=== PATIENT | male | born 1965 | race Caucasian/White ===

== ENCOUNTER 2021-04-07 12:16 | Outpatient (CLI) | payer OTHER ==
[~2021-04-07] VITALS: Ht 182.9 cm; Wt 137.3 kg
[~2021-04-07 12:16] MED LIST: ACYC1TAB PO; ALLO100T PO; ASPI81CH33 PO; AUGM875T28 PO; BUSP10TA PO; FENO200C PO; FLUC150T PO; FLUO20CA22 PO; GLYB5TAB6 PO; LEVO500T3 PO; LISI20TA33 PO; LOVA20TA2 PO; ONDA8TAB10 PO; PROC10TA4 PO; STEG15TA PO; VENC100T PO
[2021-04-07 12:45] VITALS: BP 120/70
[2021-04-07 12:50] VITALS: BP 120/70
[2021-04-07 13:06] VITALS: BP 142/75
[2021-04-07 14:00] VITALS: BP 143/69
[2021-04-07 14:30] VITALS: BP 131/63
== END 2021-04-07 14:45 | disposition home or self-care (01) ==
LOC: M INFU 12:16
PROVIDERS: ATTEND Specialist
DX: D61.818 Other pancytopenia (principal); Z88.8 Allergy status to other drugs, medicaments and biological substances
CPT/HCPCS: 36415; 36430; 80053; 85025; 85049; 85055; 86900; 86901; P9034

== ENCOUNTER 2021-05-03 16:12 | Outpatient (CLI) | payer OTHER ==
[~2021-05-03] VITALS: Ht 182.9 cm; Wt 127.1 kg
[2021-05-03] VITALS (11 sets, daily range): BP systolic 123–146; BP diastolic 68–84
[2021-05-03] MEDS ORDERED: GLUCAGON INJ 1MG VIAL SC PRN (17:30)
[2021-05-03] MEDS ORDERED: GLUCOSE 4GM CHEW TABLET PO PRN (17:30)
[2021-05-03] MEDS: HumaLOG INSULIN (NovoLOG) PER UNIT SC SCH ×2 (17:30→21:00)
[2021-05-03] MEDS ORDERED: DEXTROSE 50% 50 ML SYRINGE IV PRN (17:30)
[2021-05-03] MEDS ORDERED: VORI200T PO (17:59)
[2021-05-03] MEDS ORDERED: BUSP-29 PO (17:59)
[2021-05-03] MEDS ORDERED: ACYC1TAB PO (17:59)
[2021-05-03] MEDS ORDERED: ALLO300T2 PO (17:59)
[2021-05-03] MEDS ORDERED: LISI20TA33 PO (17:59)
[2021-05-03] MEDS ORDERED: VENC100T PO (17:59)
[2021-05-03] MEDS ORDERED: FLUO40CA PO (17:59)
[2021-05-03] MEDS ORDERED: HOME MED LIST COMPLETE! XX SCH (18:00)
[2021-05-03] MEDS ORDERED: ACETAMINOPHEN TAB 650MG DOSE (2X325MG) PO PRN (18:10)
[2021-05-03] MEDS ORDERED: ACETAMINOPHEN 325 MG TAB PO ONE (19:15)
[2021-05-03] MEDS ORDERED: diphenhydrAMINE 25MG CAP PO ONE (21:00)
[2021-05-03] MEDS ORDERED: diphenhydrAMINE 50MG/ML VIAL (J1200) IV ONE (23:45)
[2021-05-03] MEDS ORDERED: ACETAMINOPHEN TAB 650MG DOSE (2X325MG) PO ONE (23:45)
[2021-05-04] VITALS (17 sets, daily range): BP systolic 100–140; BP diastolic 47–78
[2021-05-04] MEDS ORDERED: IBUPROFEN 800 MG TAB PO ONE (01:10)
--- NOTE | 2021-05-04 01:23 | IPNPDOC ---
Text Note Date of Service The patient was seen on 05/04/21. NOTE Seen status post 2 units PRBC with reported rigors and fever. Tylenol and Benadryl IV ordered Patient blood glucose 76. He is seen after drinking 2 orange juices. Temp 102.1 F, BP 131/75 on initial notification to 109/75 during exam, respiratory rate 20. Pt does have body habitus and sounds diminished, but nonlabored and denies shortness of breath. No wheezing appreciated. He is mildly tachycardic heart rate 102, regular rhythm Pt denies itching, johansen, sinus congestion, sore throat, productive cough, sob, palpitations, chest pain, n/v/d, abdominal pain, weakness, sensory changes or syncope. He endorses feeling "hot". He does report that earlier he did have some similar shaking when his blood sugar was 63 and describes that he typically runs 120s for his blood sugar. Patient does endorse that 3 weeks ago he did have pneumonia and was in the hospital. Presently patient reports "I feel fine now just warm" Plan for continued monitoring; vital sign recheck for consideration of IV fluids if blood pressure trending down. Transfusion reaction lab work/work-up per policy. Likely febrile nonhemolytic transfusion reaction given patient presentation at time of exam. Will symptom manage. Update: Given pt with fever, recent pna opted for CXR considering differential in immunocompromised pt. Impression + PNA, minimal right middle infiltrate. CXR possible residual from recent pna; do not have CXR to compare. Pt denies any aspiration episodes. He is toleraitng RA, no sob/ cough. Opted for levaquin PO. AM labs including procalc to be drawn. BC sent. Consider de-escalation or escalation accordingly. VS,Fishbone, I+O VS, Fishbone, I+O Vital Signs Date Time Temp Pulse Resp B/P (MAP) Pulse Ox O2 Delivery O2 Flow Rate FiO2 05/03/21 22:00 100.9 101 20 125/70 (88) 97 Room Air I&O- Last 24 Hours up to 6 AM 05/04/21 06:00 Intake Total 420 ml Output Total 870 ml Balance -450 ml MUMTAZ VÁSQUEZ NP May 04, 2021 01:23
--- NOTE | 2021-05-04 03:33 | REPVR ---
PROCEDURE INFORMATION: Exam: XR Chest Exam date and time: 05/04/2021 1:32 AM Age: 55 years old Clinical indication: Fever; Additional info: Fever, recent pna, poss transfusion reaction TECHNIQUE: Imaging protocol: XR of the chest. Views: 1 view. COMPARISON: No relevant prior studies available. FINDINGS: Lungs: Minimal infiltrate in the left mid lung. The right lung is clear. Pleural spaces: Unremarkable. No pleural effusion. No pneumothorax. Heart/Mediastinum: Unremarkable. No cardiomegaly. Bones/joints: Unremarkable. IMPRESSION: Minimal infiltrate in the left mid lung consistent with pneumonia. Electronically signed by: Kevin Waldron On 05/04/2021 03:32:57 AM
[2021-05-04] MEDS: LevoFLOXacin 750 MG TABLET PO SCH (06:10)
[2021-05-04] MEDS: HumaLOG INSULIN (NovoLOG) PER UNIT SC SCH ×4 (08:19→20:37)
[2021-05-04] MEDS: LACTOBACILLUS ACIDOPHILUS CAP (BACID) PO SCH (08:19)
[2021-05-04 08:47] LABS: LYMPH # 0.2 10^3/uL (1.5-5.0); MEAN CORPUSCULAR HEMOGLOBIN 29.8 pg (27.0-33.0); MEAN CORPUSCULAR HGB CONC 34.8 g/dl (32.0-36.5); MEAN CORPUSCULAR VOLUME 85.8 fl (80.0-96.0); MONO # 0.2 10^3/uL (0.0-0.8); RED BLOOD COUNT 2.18 10^6/uL (4.30-6.10)
[2021-05-04 08:53] LABS: HEMATOCRIT 18.7 % (42.0-52.0); HEMOGLOBIN 6.5 g/dl (13.5-17.5); PLATELET COUNT, AUTOMATED 6 10^3/uL (150-450); WHITE BLOOD COUNT 0.4 10^3/uL (4.0-10.0)
[2021-05-04] MEDS: VORICONAZOLE 200MG TABLET (VFEND) PO SCH ×2 (09:00→20:46)
[2021-05-04] MEDS: ACYCLOVIR 200 MG CAPSULE PO SCH ×2 (09:00→20:46)
[2021-05-04 09:17] LABS: ALBUMIN 2.5 GM/DL (3.2-5.2); ALT/SGPT 20 U/L (12-78); BILIRUBIN,TOTAL 0.8 MG/DL (0.2-1.0); BLOOD UREA NITROGEN 19 MG/DL (7-18); CALCIUM LEVEL 8.1 MG/DL (8.5-10.1); CARBON DIOXIDE LEVEL 22 MEQ/L (21-32); CHLORIDE LEVEL 108 MEQ/L (98-107); CREATININE FOR GFR 0.76 MG/DL (0.70-1.30); GLOMERULAR FILTRATION RATE > 60.0 (>56); GLUCOSE, FASTING 189 MG/DL (70-100); POTASSIUM SERUM 3.9 MEQ/L (3.5-5.1); SODIUM LEVEL 139 MEQ/L (136-145); TOTAL PROTEIN 5.8 GM/DL (6.4-8.2)
[2021-05-04] MEDS ORDERED: ACETAMINOPHEN TAB 650MG DOSE (2X325MG) PO ONE (13:00)
[2021-05-04] MEDS ORDERED: diphenhydrAMINE 25MG CAP PO ONE (13:00)
[2021-05-04] MEDS: FLUoxetine 20 MG CAP PO SCH (13:49)
[2021-05-04] MEDS: busPIRone 10 MG TAB PO SCH ×2 (13:49→20:46)
[2021-05-04] MEDS: allopurinoL 300 MG TAB PO SCH (13:49)
--- NOTE | 2021-05-04 13:55 | CR.PDOC ---
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 In the meantime, he was admitted by heme/onc for outpatient blood products transfusion but had a fever during transfusion and has persistent anemia and thrombocytopenia that require more transfusions thus the involvement of general internal medicine for medical co-management. Of note, he also has a history of morbid obesity, NIDDM, hypertension and depression. On presentation he felt tired and fatigued but otherwise had not other glen complaints on review of systems. His WBC was 0.3, Hgb 5.3 and platelets were 2. He was transfused 2u of blood during which he had a fever, and reports that he usually gets Tylenol and Benadryl pre-transfusions. Given the occurrence of the fever, internal medicine was called overnight by nursing and ordered BCx that are negative to date and did a chest xray that showed a minimal right middle lobe infiltrate while a UA was bland. He was empirically started on levaquin. Given that he remains inpatient, I am also now restarting his acyclovir, vori and allopurinol. After a discussion with Dr. Nelson, she recommends resuming his venotoclax. Allergies metformin (Verified Allergy, Intermediate, diarrhea, 07/21/20) Home Medications: see below Past Medical History Morbid obesity Chronic kidney disease Depression NIDDM Essential hypertension Hyperlipidemia Sleep apnea syndrome Past Surgical History: Right rotator cuff surgery Bone marrow biopsies Family History: Patient has 1 brother and 2 sisters. Brother has DJD Mother of lung cancer at the age of 69 Father of stroke at the age of 70. Social History: Patient is a resident of [place]. 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 Drinks occasionally. REVIEW OF SYSTEMS: 10 point ROS was negative, except as noted in the HPI PHYSICAL EXAMINATION: VITAL SIGNS: Please see below. GENERAL APPEARANCE: Obese, NAD, AOx3 HEENT: NCAT, EOMI, MMM RESPIRATORY: RRRn, no noted crackles, wheezing or rhonchi. 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 CAP: fever (though i/s/o transfusion), right middle lobe infiltrate, elevated procal -Levofloxacin, day 1 Chemo induced panycytopenia: -will give 2u pRBCs and 2 pools of irradiated platelets today. -goal Hgb >7, platelets >10 -per Dr. Davidson to continue venotoclax -neutropenic precautions AML: -Follows with Dr. Cox at [place] and Dr. Lu here. Plan is for 28d course of venetoclax w/ plan for bone marrow biopsy on May 17 -Q3D CBCs once outpatient for repletion PRN transfusions. While inpatient will have daily CBC -continue home allopurinol, vori, acyclovir -Heme/onc onboard DM: -hold oral antihyperglycemic -SSI ACHS -FSBG ACHS -hypoglycemia protocol Hypertension: -continue home meds Depression: -continue home meds DVT ppx: TEDs and SCDs Vital Signs/I&O Vital Signs Date Time Temp Pulse Resp B/P (MAP) Pulse Ox O2 Delivery O2 Flow Rate FiO2 05/04/21 11:50 100.2 05/04/21 06:30 99 16 116/59 (78) 100 Room Air I&O- Last 24 Hours up to 6 AM 05/04/21 06:00 Intake Total 1280 ml Output Total 1550 ml Balance -270 ml Laboratory Data Labs 24H Laboratory Tests 2 05/03/21 17:45: Bedside Glucose (Misc Panel) 63L 05/03/21 20:39: Bedside Glucose (Misc Panel) 129H 05/03/21 23:48: Bedside Glucose (Misc Panel) 76 05/04/21 02:06: Urine Color YELLOW, Urine Appearance CLEAR, Urine pH 6.0, Urine Specific Wells 1.003, Urine Protein NEGATIVE, Urine Glucose (UA) 3+H, Urine Ketones NEGATIVE, Urine Blood NEGATIVE, Urine Nitrite NEGATIVE, Urine Bilirubin NEGATIVE, Urine Urobilinogen 0.2, Urine Leukocyte Esterase NEGATIVE, Urine WBC (Auto) 0, Urine RBC (Auto) 1, Urine Hyaline Casts (Auto) 0, Urine Bacteria (Auto) NEGATIVE, Urine Squamous Epithelial Cells 0, Urine Sperm (Auto) 05/04/21 02:53: Bedside Glucose (Misc Panel) 123H 05/04/21 07:32: Bedside Glucose (Misc Panel) 157H 05/04/21 08:21: Immature Granulocyte % (Auto) 0.0, Neutrophils (%) (Auto) 5.0L, Lymphocytes (%) (Auto) 45.0H, Monocytes (%) (Auto) 50.0H, Eosinophils (%) (Auto) 0.0, Basophils (%) (Auto) 0.0, Neutrophils # (Auto) 0.0L, Lymphocytes # (Auto) 0.2L, Monocytes # (Auto) 0.2, Eosinophils # (Auto) 0.0, Basophils # (Auto) 0.0, Nucleated Red Blood Cells % (auto) 0.0, Anion Gap 9, Glomerular Filtration Rate > 60.0, Lactic Acid Level 2.0, Calcium Level 8.1L, Magnesium Level 2.0, Total Bilirubin 0.8, Aspartate Amino Transf (AST/SGOT) 15, Alanine Aminotransferase (ALT/SGPT) 20, Alkaline Phosphatase 122H, Total Protein 5.8L, Albumin 2.5L, Albumin/Globulin Ratio 0.8, Procalcitonin 0.71 05/04/21 12:16: Bedside Glucose (Misc Panel) 139H CBC/BMP Laboratory Tests 05/04/21 08:21 Microbiology Microbiology 05/04/21 Blood Culture, Received Pending Allergies Coded Allergies: metformin (Verified Allergy, Intermediate, diarrhea, 07/21/20) Home Medications Scheduled Acyclovir (Acyclovir) 400 Mg Tablet, 400 MG PO BID, (Reported) Buspirone HCl (Buspirone HCl) 10 Mg Tablet, 10 MG PO BID, (Reported) Ertugliflozin Pidolate (Steglatro) 15 Mg Tablet, 15 MG PO DAILY, (Reported) Fluoxetine Hcl (Fluoxetine HCl) 40 Mg Capsule, 40 MG PO DAILY, (Reported) Lisinopril (Lisinopril) 20 Mg Tablet, 20 MG PO DAILY, (Reported) Venetoclax (Venclexta) 100 Mg Tablet, 100 MG PO DAILY, (Reported) Voriconazole (Voriconazole) 200 Mg Tablet, 200 MG PO BID, (Reported) allopurinoL (allopurinoL) 300 Mg Tablet, 300 MG PO DAILY, (Reported) KENDAL MENESES MD May 04, 2021 13:55
[2021-05-04] MEDS: LOPERAMIDE 2 MG CAPLET PO PRN (17:14)
[2021-05-04 20:09] LABS: HEMOGLOBIN 5.2 g/dl (13.5-17.5)
[2021-05-04 20:10] LABS: PLATELET COUNT, AUTOMATED 18 10^3/uL (150-450)
[2021-05-04] MEDS: ACETAMINOPHEN TAB 650MG DOSE (2X325MG) PO PRN (20:47)
[2021-05-04] MEDS: SIMETHICONE 80MG CHEW TAB PO PRN (20:50)
[2021-05-04] MEDS: IBUPROFEN 600MG TAB PO PRN (22:11)
[2021-05-05] VITALS (17 sets, daily range): BP systolic 102–133; BP diastolic 40–71
[2021-05-05] MEDS: IBUPROFEN 600MG TAB PO PRN ×2 (04:54→18:32)
[2021-05-05] MEDS: LevoFLOXacin 750 MG TABLET PO SCH (05:15)
[2021-05-05 06:59] LABS: LYMPH # 0.1 10^3/uL (1.5-5.0); LYMPH % 28.9 % (24.0-44.0); MEAN CORPUSCULAR HEMOGLOBIN 29.1 pg (27.0-33.0); MEAN CORPUSCULAR HGB CONC 34.1 g/dl (32.0-36.5); MEAN CORPUSCULAR VOLUME 85.4 fl (80.0-96.0); MONO # 0.3 10^3/uL (0.0-0.8); MONO % 57.8 % (2.0-8.0); NEUTROPHILS % 4.4 % (36.0-66.0); RED BLOOD COUNT 2.13 10^6/uL (4.30-6.10)
[2021-05-05 07:09] LABS: HEMATOCRIT 18.2 % (42.0-52.0)
[2021-05-05 07:10] LABS: HEMOGLOBIN 6.2 g/dl (13.5-17.5); PLATELET COUNT, AUTOMATED 13 10^3/uL (150-450); WHITE BLOOD COUNT 0.5 10^3/uL (4.0-10.0)
[2021-05-05 07:13] LABS: BLOOD UREA NITROGEN 19 MG/DL (7-18); CALCIUM LEVEL 7.8 MG/DL (8.5-10.1); CARBON DIOXIDE LEVEL 26 MEQ/L (21-32); CHLORIDE LEVEL 108 MEQ/L (98-107); CREATININE FOR GFR 0.68 MG/DL (0.70-1.30); GLOMERULAR FILTRATION RATE > 60.0 (>56); GLUCOSE, FASTING 156 MG/DL (70-100); POTASSIUM SERUM 3.5 MEQ/L (3.5-5.1); SODIUM LEVEL 138 MEQ/L (136-145)
[2021-05-05] MEDS: HumaLOG INSULIN (NovoLOG) PER UNIT SC SCH ×4 (08:48→21:00)
[2021-05-05] MEDS: LOPERAMIDE 2 MG CAPLET PO PRN (08:49)
[2021-05-05] MEDS: busPIRone 10 MG TAB PO SCH ×2 (08:49→21:00)
[2021-05-05] MEDS: allopurinoL 300 MG TAB PO SCH (08:49)
[2021-05-05] MEDS: VORICONAZOLE 200MG TABLET (VFEND) PO SCH ×2 (08:50→21:00)
[2021-05-05] MEDS: ACYCLOVIR 200 MG CAPSULE PO SCH ×2 (08:50→21:00)
[2021-05-05] MEDS: LACTOBACILLUS ACIDOPHILUS CAP (BACID) PO SCH (08:50)
[2021-05-05] MEDS: FLUoxetine 20 MG CAP PO SCH (08:50)
[2021-05-05] MEDS ORDERED: VENETOCLAX 100MG TABLET (PATIENT'S OWN MED) PO SCH (09:00)
[2021-05-05] MEDS ORDERED: LEVO750T13 PO (09:30)
[2021-05-05 10:19] LABS: HEMATOCRIT 17.9 % (42.0-52.0); HEMOGLOBIN 6.2 g/dl (13.5-17.5)
[2021-05-05] MEDS: VENETOCLAX 100MG TABLET (PATIENT'S OWN MED) PO SCH (10:34)
[2021-05-05] MEDS: ACETAMINOPHEN TAB 650MG DOSE (2X325MG) PO PRN ×2 (14:15→19:50)
[2021-05-05] MEDS: SIMETHICONE 80MG CHEW TAB PO PRN (17:21)
[2021-05-05 19:49] LABS: HEMATOCRIT 22.5 % (42.0-52.0); HEMOGLOBIN 7.9 g/dl (13.5-17.5)
--- NOTE | 2021-05-05 20:14 | IPNPDOC ---
Text Note Date of Service The patient was seen on 05/05/21. NOTE SUBJECTIVE: -No acute complaints, is having episodic fevers, unfortunately often coincide with transfusions OBJECTIVE: VITAL SIGNS: Please see below. GENERAL APPEARANCE: Obese, NAD, AOx3 HEENT: NCAT, EOMI, MMM RESPIRATORY: RRR, no noted crackles, wheezing or rhonchi. 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 CAP: fever (though i/s/o transfusion), right middle lobe infiltrate, elevated procal -Levofloxacin, day 2 -check MRSA PCR, strep and legionella antigens Chemo induced panycytopenia: -s/p 6u pRBCs and 2 pools of irradiated platelets. -goal Hgb >7, platelets >10 -per Dr. Davidson to continue venotoclax -neutropenic precautions AML: -Follows with Dr. Cox at [place] and Dr. Lu here. Plan is for 28d course of venetoclax w/ plan for bone marrow biopsy on May 17 -Q3D CBCs once outpatient for repletion PRN transfusions. While inpatient will have daily CBC -continue home allopurinol, vori, acyclovir -Heme/onc onboard DM: -hold oral antihyperglycemic -SSI ACHS -FSBG ACHS -hypoglycemia protocol Hypertension: -continue home meds Depression: -continue home meds DVT ppx: TEDs and SCDs Dispo: home tomorrow AM VS,Fishbone, I+O VS, Fishbone, I+O Laboratory Tests 05/05/21 06:33 05/05/21 09:52 05/05/21 19:28 Vital Signs Date Time Temp Pulse Resp B/P (MAP) Pulse Ox O2 Delivery O2 Flow Rate FiO2 05/05/21 19:30 102.6 113 20 133/69 97 Room Air I&O- Last 24 Hours up to 6 AM 05/05/21 06:00 Intake Total 4023 ml Output Total 1490 ml Balance 2533 ml KENDAL MENESES MD May 05, 2021 20:14
[2021-05-06] MEDS: LevoFLOXacin 750 MG TABLET PO SCH (05:06)
[2021-05-06] MEDS: LOPERAMIDE 2 MG CAPLET PO PRN (05:06)
[2021-05-06] MEDS: SIMETHICONE 80MG CHEW TAB PO PRN (05:06)
[2021-05-06] MEDS: IBUPROFEN 600MG TAB PO PRN (05:07)
[2021-05-06 06:00] VITALS: BP 124/69
[2021-05-06 06:42] LABS: HEMATOCRIT 21.1 % (42.0-52.0); HEMOGLOBIN 7.5 g/dl (13.5-17.5); LYMPH # 0.1 10^3/uL (1.5-5.0); LYMPH % 19.4 % (24.0-44.0); MEAN CORPUSCULAR HEMOGLOBIN 29.3 pg (27.0-33.0); MEAN CORPUSCULAR HGB CONC 35.5 g/dl (32.0-36.5); MEAN CORPUSCULAR VOLUME 82.4 fl (80.0-96.0); MONO # 0.3 10^3/uL (0.0-0.8); MONO % 53.2 % (2.0-8.0); NEUTROPHILS % 27.4 % (36.0-66.0); RED BLOOD COUNT 2.56 10^6/uL (4.30-6.10)
[2021-05-06 06:55] LABS: BLOOD UREA NITROGEN 15 MG/DL (7-18); CALCIUM LEVEL 7.8 MG/DL (8.5-10.1); CARBON DIOXIDE LEVEL 23 MEQ/L (21-32); CHLORIDE LEVEL 107 MEQ/L (98-107); CREATININE FOR GFR 0.62 MG/DL (0.70-1.30); GLOMERULAR FILTRATION RATE > 60.0 (>56); GLUCOSE, FASTING 170 MG/DL (70-100); NEUTROPHILS # 0.2 10^3/uL (1.5-8.5); PLATELET COUNT, AUTOMATED 8 10^3/uL (150-450); POTASSIUM SERUM 3.6 MEQ/L (3.5-5.1); SODIUM LEVEL 136 MEQ/L (136-145); WHITE BLOOD COUNT 0.6 10^3/uL (4.0-10.0)
[2021-05-06] MEDS: HumaLOG INSULIN (NovoLOG) PER UNIT SC SCH (08:17)
[2021-05-06] MEDS: allopurinoL 300 MG TAB PO SCH (08:17)
[2021-05-06] MEDS: VENETOCLAX 100MG TABLET (PATIENT'S OWN MED) PO SCH (08:17)
[2021-05-06] MEDS: VORICONAZOLE 200MG TABLET (VFEND) PO SCH (08:18)
[2021-05-06] MEDS: busPIRone 10 MG TAB PO SCH (08:18)
[2021-05-06] MEDS: FLUoxetine 20 MG CAP PO SCH (08:18)
[2021-05-06] MEDS: LACTOBACILLUS ACIDOPHILUS CAP (BACID) PO SCH (08:18)
[2021-05-06] MEDS: ACYCLOVIR 200 MG CAPSULE PO SCH (08:18)
[2021-05-06 08:20] VITALS: BP 119/69
--- NOTE | 2021-05-06 10:24 | DS.PDOC ---
Discharge Summary General Date of Admission 05/03/2021 Date of Discharge 05/06/2021 Attending Physician: KENDAL MENESES MD Discharge Summary PROCEDURES PERFORMED DURING STAY: None ADMITTING DIAGNOSES: Pancytopenia DISCHARGE DIAGNOSES: Chemo/immunotherapy induced pancytopenia AML on venotoclax Morbid obesity Chronic kidney disease Depression NIDDM Essential hypertension Hyperlipidemia Sleep apnea syndrome COMPLICATIONS/CHIEF COMPLAINT: Blood Transfusion. 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 HOSPITAL COURSE: He was admitted by heme/onc for outpatient blood products transfusion but had a fever during transfusion and has persistent anemia and thrombocytopenia that required more transfusions thus the involvement of general internal medicine for medical co-management. Of note, he also has a history of morbid obesity, NIDDM, hypertension and depression. On presentation he felt tired and fatigued but otherwise had not other glen complaints on review of systems. His WBC was 0.3, Hgb 5.3 and platelets were 2. He was transfused 2u of blood during which he had a fever, and reports that he usually gets Tylenol and Benadryl pre-transfusions. Given the occurrence of the fever, internal medicine was called overnight by nursing and ordered BCx that are negative to date and did a chest xray that showed a minimal right middle lobe infiltrate while a UA was bland. He was empirically started on levaquin. Given hgb below 7, he remained inpatient for more blood products and in he ultimately received 6 units of blood and 2 pools of platelets. On discussion with Dr. Warren, she recommended resuming his venotoclax. He is now being discharged home with hgb of 7.5 and is to follow up in hematology clinic within 3d as noted by Dr. Lu's plan for frequent CBCs for outpatient supportive transfusions. DISCHARGE MEDICATIONS: Please see below. ALLERGIES: Please see below. PHYSICAL EXAMINATION ON DISCHARGE: VITAL SIGNS: Please see below. GENERAL APPEARANCE: Obese, NAD, AOx3 HEENT: NCAT, EOMI, MMM RESPIRATORY: RRRn, no noted crackles, wheezing or rhonchi. Breathing comfortably on room air CARDIOVASCULAR: RRR, no m/r/g ABDOMEN: Obese, protuberant, NTND, normoactive bowel sounds EXTREMITIES: WWP, no edema NEUROLOGICAL: CN3-12 intact, grossly nonfocal examination PSYCHIATRIC: AOx3 LABORATORY DATA: Please see below. IMAGING: CXR: Lungs: Minimal infiltrate in the left mid lung. The right lung is clear. Pleural spaces: Unremarkable. No pleural effusion. No pneumothorax. Heart/Mediastinum: Unremarkable. No cardiomegaly. Bones/joints: Unremarkable. IMPRESSION: Minimal infiltrate in the left mid lung consistent with pneumonia. PROGNOSIS: Good ACTIVITY: As tolerated DIET: consistent carb, 2g sodium DISCHARGE PLAN: Home with close hematology follow up within 3d, and PCP within 7d DISPOSITION: Home DISCHARGE INSTRUCTIONS: Home with close hematology follow up within 3d, and PCP within 7d ITEMS TO FOLLOWUP ON ON OUTPATIENT: Pancytopenia AML DISCHARGE CONDITION: Stable TIME SPENT ON DISCHARGE: 49 minutes. Vital Signs/I&Os Vital Signs Date Time Temp Pulse Resp B/P (MAP) Pulse Ox O2 Delivery O2 Flow Rate FiO2 05/05/21 08:52 98.8 05/05/21 08:50 113/64 05/05/21 06:00 122 20 98 Room Air I&O- Last 24 Hours up to 6 AM 05/05/21 06:00 Intake Total 4023 ml Output Total 1490 ml Balance 2533 ml Laboratory Data Labs 24H Laboratory Tests 2 05/04/21 12:16: Bedside Glucose (Misc Panel) 139H 05/04/21 16:47: Bedside Glucose (Misc Panel) 181H 05/04/21 19:41: Immature Platelet Fraction 3.8 05/04/21 20:36: Bedside Glucose (Misc Panel) 147H 05/05/21 06:33: Immature Granulocyte % (Auto) 8.9H, Neutrophils (%) (Auto) 4.4L, Lymphocytes (%) (Auto) 28.9, Monocytes (%) (Auto) 57.8H, Eosinophils (%) (Auto) 0.0, Basophils (%) (Auto) 0.0, Neutrophils # (Auto) 0.0L, Lymphocytes # (Auto) 0.1L, Monocytes # (Auto) 0.3, Eosinophils # (Auto) 0.0, Basophils # (Auto) 0.0, Nucleated Red Blood Cells % (auto) 0.0, Anion Gap 4L, Glomerular Filtration Rate > 60.0, Calcium Level 7.8L CBC/BMP Laboratory Tests 05/04/21 19:41 05/05/21 06:33 FSBS Laboratory Tests Test 05/04/21 12:16 05/04/21 16:47 05/04/21 20:36 Range/Units Bedside Glucose (Misc Panel) 139 181 147 70-105 MG/DL Microbiology Microbiology 05/04/21 Blood Culture - Preliminary, Resulted No growth after 24 hours . All specim... Discharge Medications Scheduled Acyclovir (Acyclovir) 400 Mg Tablet, 400 MG PO BID, (Reported) Buspirone HCl (Buspirone HCl) 10 Mg Tablet, 10 MG PO BID, (Reported) Ertugliflozin Pidolate (Steglatro) 15 Mg Tablet, 15 MG PO DAILY, (Reported) Fluoxetine Hcl (Fluoxetine HCl) 40 Mg Capsule, 40 MG PO DAILY, (Reported) Levofloxacin (Levofloxacin) 750 Mg Tablet, 750 MG PO DAILY@06 Lisinopril (Lisinopril) 20 Mg Tablet, 20 MG PO DAILY, (Reported) Venetoclax (Venclexta) 100 Mg Tablet, 100 MG PO DAILY, (Reported) Voriconazole (Voriconazole) 200 Mg Tablet, 200 MG PO BID, (Reported) allopurinoL (allopurinoL) 300 Mg Tablet, 300 MG PO DAILY, (Reported) Allergies Coded Allergies: metformin (Verified Allergy, Intermediate, diarrhea, 07/21/20) KENDAL MENESES MD May 05, 2021 09:29
[2021-05-10 13:10] LABS: BODY FLUID CULTURE Not indicated. (.); LEGIONELLA ANTIGEN URINE Negative (Negative); ORGANISM ID Not indicated. (.); SPECIMEN SOURCE Urine (.); URINE STREP PNEUMONIAE ANTIGEN Negative (Negative)
== END 2021-05-06 12:30 | disposition home or self-care (01) ==
LOC: M OPCLI4PV 16:12 → M OR 16:35 → M MSPAV 16:40 → M OPCLI4PV 05-06 12:30
PROVIDERS: ATTEND Specialist
DX: D61.810 Antineoplastic chemotherapy induced pancytopenia (principal); E66.01 Morbid (severe) obesity due to excess calories; N18.9 Chronic kidney disease, unspecified; F32.A Depression, unspecified; E11.22 Type 2 diabetes mellitus with diabetic chronic kidney disease; E78.5 Hyperlipidemia, unspecified; I12.9 Hypertensive chronic kidney disease with stage 1 through stage 4 chronic kidney disease, or unspecified chronic kidney disease; G47.30 Sleep apnea, unspecified; C92.00 Acute myeloblastic leukemia, not having achieved remission
CPT/HCPCS: 36415; 71045; 80048; 80053; 81001; 83605; 83735; 84145; 85014; 85018; 85025; 85027; 85049; 85055; 86850; 86880; 86900; 86901; 86920; 87040; 87449; 87641; 87899; J1200; P9034; P9040

== ENCOUNTER 2021-05-10 15:33 | Inpatient (IN) | payer OTHER ==
[~2021-05-10] VITALS: Ht 182.9 cm; Wt 132.6 kg
[~2021-05-10 15:33] MED LIST changes: +ALLO300T2 PO; +BUSP-29 PO; +FLUO40CA PO; +LEVO750T13 PO; +VORI200T PO
[2021-05-10] MEDS ORDERED: GLUCOSE 4GM CHEW TABLET PO PRN (16:35)
[2021-05-10] MEDS ORDERED: GLUCAGON INJ 1MG VIAL SC PRN (16:35)
[2021-05-10] MEDS ORDERED: DEXTROSE 50% 50 ML SYRINGE IV PRN (16:35)
[2021-05-10 17:20] VITALS: BP 151/76
[2021-05-10] MEDS ORDERED: HOME MED LIST COMPLETE! XX SCH (17:35)
[2021-05-10] MEDS ORDERED: FILGRASTIM 300 MCG/0.5 ML SYRINGE **SC ADMINISTRATION ONLY SC SCH (18:00)
--- NOTE | 2021-05-10 18:06 | HPEPDOC ---
[facility] Medical History & Physical Date of Admission May 10, 2021 Date of Service: May 10, 2021 History and Physical CHIEF COMPLAINT: Fever HISTORY OF PRESENT ILLNESS: 55-year-old male with history of AML , recently treated for neutropenic fever on 05/04/2021 presents as a direct admission from the [facility] where he was receiving platelet transfusion due to recurrent fevers at home 99.7-100.0. Patient said that after transfusion on Monday patient went home and was "acting like a 2-year-old," evaluated at [place] and was found to be hypoglycemic with glucose of 42 and hypokalemia. Since then patient has been himself and denies any chest pain pressure tightness shortness of breath chills nausea vomiting. He admits to chronic diarrhea if he does not take his Imodium every morning. He otherwise denies any dysuria urgency frequency chills flank pain. Repeat CBC today showed pancytopenia with white blood cell count of 0.5 , ANC 103.5, platelet of 3000 and hemoglobin of 6.6. Patient denies any bleeding but says that he had increasing bruising in his upper and lower extremities since Monday he denies any bright red blood per rectum melena black tarry stools gingival bleeding hemarthrosis or any ecchymotic areas in his body. Patient is being admitted for neutropenic fever for IV antibiotics to cover gram-negative infection as well as blood transfusion for RBCs and platelets. 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 Denies recreational drug use or tobacco abuse Occasional alcohol FAMILY HISTORY: Mother age 69 lung cancer Father age 70 CVA ALLERGIES: Please see below. REVIEW OF SYSTEMS: 10 point review of systems negative HOME MEDICATIONS: Please see below. PHYSICAL EXAMINATION: VITAL SIGNS: See below GENERAL APPEARANCE: Disheveled no distress HEENT: No JVD thyromegaly or cervical lymphadenopathy edentulous CARDIOVASCULAR: S1-S2 regular rate rhythm LUNGS: No wheezing rales or rhonchi clear to auscultation ABDOMEN: Obese soft nontender nondistended positive bowel sounds x4 quadrants No rebound or guarding EXTREMITIES: Right forearm peripheral IV multiple bruises bilateral upper and lower extremities LABORATORY DATA: See below. IMAGING: See below MICROBIOLOGY: Please see below. ASSESSMENT: 55-year-old male with history of AML , recently treated for neutropenic fever on 05/04/2021 and treated for community-acquired pneumonia on Levaquin, presents as a direct admission from the [facility] where he was receiving platelet transfusion due to recurrent fevers at home 99.7-100.0. Patient said that after transfusion on Monday patient went home and was "acting like a 2-year-old," evaluated at [place] and was found to be hypoglycemic with glucose of 42 and hypokalemia. Since then patient has been himself and denies any chest pain pressure tightness shortness of breath chills nausea vomiting. He admits to chronic diarrhea if he does not take his Imodium every morning. He otherwise denies any dysuria urgency frequency chills flank pain. Repeat CBC today showed pancytopenia with white blood cell count of 0.5 platelet of 3000 and hemoglobin of 6.6. Patient denies any bleeding but says that he had increasing bruising in his upper and lower extremities since Monday he denies any bright red blood per rectum melena black tarry stools gingival bleeding hemarthrosis or any ecchymotic areas in his body. Patient is being admitted for neutropenic fever for IV antibiotics to cover gram-negative infection as well as blood transfusion for RBCs and platelets. Neutropenic fever ANC 103.5, plt3, hgb6 Neutropenic precautions neutropenic diet irradiated RBC and platelet transfusion Neupogen empiric antibiotics to cover gram-negative infection IV Zosyn due to recent pneumonia and hospitalization empiric IV Vanco for possible MRSA check MRSA screen, coronavirus, 2 sets of blood cultures, UA, CT chest abdomen pelvis. Due to recent altered mental status at [facility] check CT of the head rule out intracranial hemorrhage with platelets of 3. Blood consent signed. AML with refractory disease transfusion dependent/pancytopenia Resume chemo meds Hypertension Resume lisinopril with holding parameters Diabetes Neutropenic diet consistent carbohydrate sliding scale with coverage with before every meal fingersticks and nightly Obstructive sleep apnea Chronic Depression Resume home meds Chronic diarrhea Takes daily Imodium DVT prophylaxis compression stockings Vital Signs Vital Signs Date Time Temp Pulse Resp B/P (MAP) Pulse Ox O2 Delivery O2 Flow Rate FiO2 05/10/21 17:20 100.6 114 18 151/76 (101) 98 Room Air Home Medications Scheduled Acyclovir (Acyclovir) 400 Mg Tablet, 400 MG PO BID Buspirone HCl (Buspirone HCl) 10 Mg Tablet, 10 MG PO BID Ertugliflozin Pidolate (Steglatro) 15 Mg Tablet, 15 MG PO DAILY Fluoxetine Hcl (Fluoxetine HCl) 40 Mg Capsule, 40 MG PO DAILY Levofloxacin (Levofloxacin) 750 Mg Tablet, 750 MG PO DAILY@06 Lisinopril (Lisinopril) 20 Mg Tablet, 20 MG PO DAILY Venetoclax (Venclexta) 100 Mg Tablet, 100 MG PO DAILY Voriconazole (Voriconazole) 200 Mg Tablet, 200 MG PO BID allopurinoL (allopurinoL) 300 Mg Tablet, 300 MG PO DAILY Allergies Coded Allergies: metformin (Verified Allergy, Intermediate, diarrhea, 07/21/20) A-FIB/CHADSVASC A-FIB History Current/History of A-Fib/PAF?: No Current PO Anticoag Therapy: No Age/Risk Factor Scoring CHADSVASC: CHADSVASC Response (Comments) Value Age Risk Factor Age < 65 years old 0 Gender Risk Factor Male 0 Hx of CHF No 0 Hx of HTN Yes 1 Hx of Stroke/TIA/or VTE No 0 Hx of Diabetes Yes 1 Hx of Vascular Disease No 0 Total 2 Treatment Treatment ordered: NONE OTF OSWALD MD May 10, 2021 18:02
[2021-05-10] MEDS: PIPERACILLIN/TAZOBACTAM SOD 4.5 GM in D5W MINI-BAG PLUS 50 ML IV SCH (18:10)
[2021-05-10] MEDS: busPIRone 10 MG TAB PO SCH ×2 (18:11→21:19)
[2021-05-10] MEDS: GASTROGRAFIN SOLUTION 30ML PO SCH ×2 (18:12→18:17)
[2021-05-10] MEDS ORDERED: VANCOMYCIN HCL 1,000 MG, VIAL MATE ADAPTER 1 EACH in NS 250 ML IV ONE (19:00)
[2021-05-10] MEDS ORDERED: ISOVUE-370 76% 100ML VIAL As Ordered ONE (19:21)
[2021-05-10] MEDS ORDERED: ACETAMINOPHEN 500 MG TAB PO SCH (21:00)
[2021-05-10] MEDS ORDERED: diphenhydrAMINE 50MG/ML VIAL (J1200) IV SCH (21:00)
[2021-05-10] MEDS: HumaLOG INSULIN (NovoLOG) PER UNIT SC SCH (21:00)
[2021-05-10] MEDS: ACYCLOVIR 200 MG CAPSULE PO SCH (21:19)
[2021-05-10] MEDS: VORICONAZOLE 200MG TABLET (VFEND) PO SCH (21:19)
--- NOTE | 2021-05-10 21:30 | REPVR ---
PROCEDURE INFORMATION: Exam: CT Head Without Contrast Exam date and time: 05/10/2021 8:30 PM Age: 55 years old Clinical indication: Other: Thrombocytopenia; Additional info: Thrombocytopenia R/O ich TECHNIQUE: Imaging protocol: Computed tomography of the head without contrast. Radiation optimization: All CT scans at this facility use at least one of these dose optimization techniques: automated exposure control; mA and/or kV adjustment per patient size (includes targeted exams where dose is matched to clinical indication); or iterative reconstruction. COMPARISON: No relevant prior studies available. FINDINGS: Brain: No acute intracranial hemorrhage, midline shift or significant intracranial mass effect. Minimal patchy decreased attenuation of the supratentorial white matter is likely secondary to chronic microvascular ischemia. Cerebral ventricles: No hydrocephalus. Paranasal sinuses: 2.4 cm left maxillary sinus mucous retention cyst or polyp. Minimal additional paranasal sinus disease. Mastoid air cells: Visualized mastoid air cells are well aerated. Bones/joints: Unremarkable. No acute fracture. Soft tissues: Unremarkable. IMPRESSION: No acute intracranial abnormality. Electronically signed by: Aníbal Noland On 05/10/2021 21:29:32 PM
--- NOTE | 2021-05-10 21:41 | REPVR ---
PROCEDURE INFORMATION: Exam: CT Chest With Contrast; Diagnostic Exam date and time: 05/10/2021 8:30 PM Age: 55 years old Clinical indication: Fever; Additional info: Neutropenic fever TECHNIQUE: Imaging protocol: Diagnostic computed tomography of the chest with contrast. Radiation optimization: All CT scans at this facility use at least one of these dose optimization techniques: automated exposure control; mA and/or kV adjustment per patient size (includes targeted exams where dose is matched to clinical indication); or iterative reconstruction. Contrast material: ISOVUE 370; Contrast volume: 100 ml; Contrast route: INTRAVENOUS (IV); COMPARISON: CR PORTABLE CHEST X-RAY 05/04/2021 1:32 AM FINDINGS: Lungs: Spiculated lesion in the right upper lobe measuring 1.1 cm. A 2nd lesion at the right lung base measuring 5 mm. 5 mm nodule in the lingula. Pleural spaces: Trace left pleural effusion. Atelectasis at the left lung base. Heart: Unremarkable. No cardiomegaly. No pericardial effusion. Aorta: Unremarkable. No aortic aneurysm. Lymph nodes: Unremarkable. No enlarged lymph nodes. Bones/joints: Degenerative changes of the spine. Soft tissues: Unremarkable. IMPRESSION: Multiple lesions in bilateral lungs. The largest measures in the right upper lobe measuring 1.1 cm. Findings suspicious for neoplastic lesion. Tissue diagnosis is suggested. Electronically signed by: Aman Charlton On 05/10/2021 21:40:14 PM
--- NOTE | 2021-05-10 21:46 | REPVR ---
PROCEDURE INFORMATION: Exam: CT Abdomen And Pelvis With Contrast Exam date and time: 05/10/2021 8:30 PM Age: 55 years old Clinical indication: Fever; Additional info: Neutropenic fever TECHNIQUE: Imaging protocol: Computed tomography of the abdomen and pelvis with contrast. Radiation optimization: All CT scans at this facility use at least one of these dose optimization techniques: automated exposure control; mA and/or kV adjustment per patient size (includes targeted exams where dose is matched to clinical indication); or iterative reconstruction. Contrast material: ISOVUE 370; Contrast volume: 100 ml; Contrast route: INTRAVENOUS (IV); COMPARISON: CR PORTABLE CHEST X-RAY 05/04/2021 1:32 AM FINDINGS: Lungs: Atelectasis at the visualized left lung base. Liver: Liver is enlarged measuring 24 cm. Gallbladder and bile ducts: Cholelithiasis. Pancreas: Normal. No ductal dilation. Spleen: Spleen is enlarged measuring 17 cm. Adrenal glands: Normal. No mass. Kidneys and ureters: Normal. No hydronephrosis. Stomach and bowel: Unremarkable. No obstruction. No mucosal thickening. Appendix: No evidence of appendicitis. Intraperitoneal space: Unremarkable. No free air. No significant fluid collection. Vasculature: Unremarkable. No abdominal aortic aneurysm. Lymph nodes: Unremarkable. No enlarged lymph nodes. Urinary bladder: Unremarkable as visualized. Reproductive: Unremarkable as visualized. Bones/joints: Unremarkable. No acute fracture. Soft tissues: Bilateral inguinal hernias containing fat. IMPRESSION: 1. Hepatosplenomegaly. 2. Atelectasis at the visualized left lung base. Electronically signed by: Aman Charlton On 05/10/2021 21:46:16 PM
[2021-05-10 22:00] VITALS: BP 135/73
[2021-05-10] MEDS: VANCOMYCIN HCL 1,000 MG, VIAL MATE ADAPTER 1 EACH in NS 250 ML IV SCH (22:47)
[2021-05-11] VITALS (22 sets, daily range): BP systolic 103–180; BP diastolic 45–86
[2021-05-11] MEDS ORDERED: UNRESOLVED PATIENT OWN MED ORDER XX SCH (00:01)
[2021-05-11] MEDS: PIPERACILLIN/TAZOBACTAM SOD 4.5 GM in D5W MINI-BAG PLUS 50 ML IV SCH ×4 (01:05→17:23)
[2021-05-11] MEDS: VANCOMYCIN HCL 1,000 MG, VIAL MATE ADAPTER 1 EACH in NS 250 ML IV SCH ×2 (04:16→12:18)
[2021-05-11] MEDS: ACYCLOVIR 200 MG CAPSULE PO SCH ×2 (08:05→20:17)
[2021-05-11] MEDS: busPIRone 10 MG TAB PO SCH ×4 (08:05→20:17)
[2021-05-11] MEDS: VORICONAZOLE 200MG TABLET (VFEND) PO SCH ×2 (08:05→20:17)
[2021-05-11] MEDS: FLUoxetine 20 MG CAP PO SCH (08:05)
[2021-05-11] MEDS: VENETOCLAX 100MG TABLET (PATIENT'S OWN MED) PO SCH (08:05)
[2021-05-11] MEDS: allopurinoL 300 MG TAB PO SCH (08:06)
[2021-05-11 08:42] LABS: BASO % 1.4 % (0.0-1.0); HEMATOCRIT 24.1 % (42.0-52.0); HEMOGLOBIN 8.1 g/dl (13.5-17.5); LYMPH # 0.2 10^3/uL (1.5-5.0); LYMPH % 28.8 % (24.0-44.0); MEAN CORPUSCULAR HEMOGLOBIN 29.8 pg (27.0-33.0); MEAN CORPUSCULAR HGB CONC 33.6 g/dl (32.0-36.5); MEAN CORPUSCULAR VOLUME 88.6 fl (80.0-96.0); MONO # 0.4 10^3/uL (0.0-0.8); MONO % 47.9 % (2.0-8.0); NEUTROPHILS % 21.9 % (36.0-66.0); RED BLOOD COUNT 2.72 10^6/uL (4.30-6.10)
[2021-05-11 08:43] LABS: NEUTROPHILS # 0.2 10^3/uL (1.5-8.5); PLATELET COUNT, AUTOMATED 8 10^3/uL (150-450); WHITE BLOOD COUNT 0.7 10^3/uL (4.0-10.0)
[2021-05-11 09:12] LABS: BLOOD UREA NITROGEN 15 MG/DL (7-18); CALCIUM LEVEL 8.2 MG/DL (8.5-10.1); CARBON DIOXIDE LEVEL 25 MEQ/L (21-32); CHLORIDE LEVEL 107 MEQ/L (98-107); CREATININE FOR GFR 0.76 MG/DL (0.70-1.30); GLOMERULAR FILTRATION RATE > 60.0 (>56); GLUCOSE, FASTING 171 MG/DL (70-100); POTASSIUM SERUM 4.2 MEQ/L (3.5-5.1); SODIUM LEVEL 138 MEQ/L (136-145)
[2021-05-11] MEDS ORDERED: ACETAMINOPHEN 325 MG TAB As Ordered ONE (09:43)
[2021-05-11] MEDS: ACETAMINOPHEN TAB 650MG DOSE (2X325MG) PO PRN ×3 (09:48→18:21)
[2021-05-11] MEDS ORDERED: LOPERAMIDE 2 MG CAPLET PO ONE (10:15)
[2021-05-11] MEDS ORDERED: LOPERAMIDE 2 MG CAPLET PO SCH (10:25)
[2021-05-11] MEDS: LOPERAMIDE 2 MG CAPLET PO PRN (12:17)
[2021-05-11 15:20] LABS: HEMOGLOBIN 7.9 g/dl (13.5-17.5); LYMPH # 0.2 10^3/uL (1.5-5.0); LYMPH % 23.6 % (24.0-44.0); MEAN CORPUSCULAR HEMOGLOBIN 29.8 pg (27.0-33.0); MEAN CORPUSCULAR HGB CONC 34.3 g/dl (32.0-36.5); MEAN CORPUSCULAR VOLUME 86.8 fl (80.0-96.0); MONO # 0.4 10^3/uL (0.0-0.8); MONO % 58.3 % (2.0-8.0); NEUTROPHILS % 16.7 % (36.0-66.0); RED BLOOD COUNT 2.65 10^6/uL (4.30-6.10)
[2021-05-11 15:23] LABS: NEUTROPHILS # 0.1 10^3/uL (1.5-8.5); PLATELET COUNT, AUTOMATED 12 10^3/uL (150-450); WHITE BLOOD COUNT 0.7 10^3/uL (4.0-10.0)
[2021-05-11] MEDS ORDERED: KETOROLAC 30 MG/ML 1ML VIAL IV ONE (19:30)
--- NOTE | 2021-05-11 19:46 | IPNPDOC ---
Date Seen The patient was seen on 05/11/21. Progress Note SUBJECTIVE: Received 3 units PRBC, 2 PLTs. Fevers today with highest 102.9, given tylenol and later toradol. Patient complains of some nasal congestion, CT maxillofacial ordered. He denies SOB, chest pain, n/v/d. OBJECTIVE: PHYSICAL EXAMINATION: VITAL SIGNS: See below GENERAL APPEARANCE: Disheveled no distress HEENT: No JVD thyromegaly or cervical lymphadenopathy edentulous CARDIOVASCULAR: S1-S2 regular rate rhythm LUNGS: No wheezing rales or rhonchi clear to auscultation ABDOMEN: Obese soft nontender nondistended positive bowel sounds x4 quadrants No rebound or guarding EXTREMITIES/INTEGUMENTARY: Right forearm peripheral IV multiple bruises bilateral upper and lower extremities LABORATORY DATA: See below. IMAGING: CT chest 05/10/21: Multiple lesions in bilateral lungs. The largest measures in the right upper lobe measuring 1.1 cm. Findings suspicious for neoplastic lesion. Tissue diagnosis is suggested. CT chest 08/2020 (scanned image in our EMR): Approximately 6 m consolidative mass in the left lower lobe with surrounding groundglass attenuation as well as multiple bilateral small scattered pulmonary nodules in the peripheral and lower lung predominant distribution. 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 Aspergillosis is a differential consideration. Although dictating lesions are identified, a less likely differential consideration would BE septic pulmonary emboli with a left lower lobe infarct. Nonspecific 1.5 x 1.0 cm soft tissue nodule in the anterior right chest wall superior to the patient's right nipple. Correlation with physical exam is recommended. Coronary artery calcifications which are imaging biomarkers for cardiovascular disease. MICROBIOLOGY: Please see below. ASSESSMENT: 55-year-old male with history of AML , recently treated for neutropenic fever on 05/04/2021 and treated for community-acquired pneumonia on Levaquin, presents as a direct admission from the [facility] for neutropenic fever, SIRS without identified infection. PLAN: Neutropenic fever r/o fungal infection, SIRS (no identified infection) -T max 102.9 today, had all day with and without blood products running -H/H improved, PLTs improved to 12. -CT chest showed multiple lesions in b/l lungs. CT from 08/2020 (scanned image to our EMR) showed mass and scattered pulmonary lung nodules , concerning for inflammatory/infection at that time as well. -D/w med/onc Dr. Lu who spoke with patient's medical oncologist at [facility] (Dr. Srivastava). At this time the patient is due to get a bone marrow aspiration biopsy on 05/16/2021 at [facility]. He was put on a allogenic transplant list by his medical oncologist at that facility. -Normally goal would be to keep platelets > 10, hemoglobin >7; however, if needing bronchoscopy he will need Hgb >9 and PLTs >50- requiring a significant more blood product. He should only receive irradiated blood product. -Blood cultures no growth at 24 hours, sputum culture pending, f/u CT maxillofacial (sinus infection/abscess less likely ; however, with no confirmed source ruling out) -Neutropenic precautions -MRSA neg. Lyme,aspergillus testing pending. -Discussed case with both Dr. Paz (ID) and Dr. Holt (pulmonary) who will see patient tomorrow. Will decide if bronchoscopy is warranted. -Stop Zosyn, start meropenem. C/w vancomycin, antifungal and antiviral prophylaxis for now. Dr. Paz to see if additional antifungal should be started. 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 Lu (who has spoken with patient's med/onc specialist Dr. Srivastava) patient is supposed to get a bone marrow aspiration biopsy on 05/16/2021 at [facility]. He was put on a allogenic transplant list by his medical oncologist at that facility. -Neupogen stopped and it was requested that venetoclax continue -Daily CBC. Hypertension -C/w lisinopril with holding parameters Diabetes -Neutropenic diet consistent carbohydrate sliding scale with coverage with before every meal fingersticks and nightly Obstructive sleep apnea, chronic -On RA Depression -stable -C/w home meds Chronic diarrhea ;however, has gone >3 bowel movements today, incontinence -C. diff PCR ordered -On probiotic. DVT prophylaxis -teds, SCD DISPOSITION: ID and pulmonary consulted. VS, I&O, 24H, Fishbone Vital Signs/I&O Vital Signs Date Time Temp Pulse Resp B/P (MAP) Pulse Ox O2 Delivery O2 Flow Rate FiO2 05/11/21 18:58 102.2 05/11/21 16:03 95 20 147/61 Room Air 05/11/21 14:17 97 I&O- Last 24 Hours up to 6 AM 05/11/21 06:00 Intake Total 1000 ml Output Total 1400 ml Balance -400 ml Laboratory Data 24H LABS Laboratory Tests 2 05/10/21 19:58: Urine Color YELLOW, Urine Appearance CLEAR, Urine pH 7.0, Urine Specific [place] 1.016, Urine Protein NEGATIVE, Urine Glucose (UA) 3+H, Urine Ketones NEGATIVE, Urine Blood NEGATIVE, Urine Nitrite NEGATIVE, Urine Bilirubin NEGATIVE, Urine Urobilinogen 2.0H, Urine Leukocyte Esterase NEGATIVE, Urine WBC (Auto) 0, Urine RBC (Auto) 2, Urine Hyaline Casts (Auto) 0, Urine Bacteria (Auto) NEGATIVE, Urine Squamous Epithelial Cells 1, Urine Sperm (Auto) , Methicillin-Resist S.aureus DNA PCR NOT DETECTED 05/10/21 21:24: Bedside Glucose (Misc Panel) 128H 05/11/21 06:23: Bedside Glucose (Misc Panel) 92 05/11/21 08:29: Immature Granulocyte % (Auto) 0.0, Neutrophils (%) (Auto) 21.9L, Lymphocytes (%) (Auto) 28.8, Monocytes (%) (Auto) 47.9H, Eosinophils (%) (Auto) 0.0, Basophils (%) (Auto) 1.4H, Neutrophils # (Auto) 0.2L, Lymphocytes # (Auto) 0.2L, Monocytes # (Auto) 0.4, Eosinophils # (Auto) 0.0, Basophils # (Auto) 0.0, Nucleated Red Blood Cells % (auto) 0.0, Anion Gap 6L, Glomerular Filtration Rate > 60.0, Calcium Level 8.2L 05/11/21 11:58: Bedside Glucose (Misc Panel) 94 05/11/21 15:03: Immature Granulocyte % (Auto) 1.4, Neutrophils (%) (Auto) 16.7L, Lymphocytes (%) (Auto) 23.6L, Monocytes (%) (Auto) 58.3H, Eosinophils (%) (Auto) 0.0, Basophils (%) (Auto) 0.0, Neutrophils # (Auto) 0.1L, Lymphocytes # (Auto) 0.2L, Monocytes # (Auto) 0.4, Eosinophils # (Auto) 0.0, Basophils # (Auto) 0.0, Nucleated Red Blood Cells % (auto) 0.0, Immature Platelet Fraction 3.8 05/11/21 16:57: Bedside Glucose (Misc Panel) 108H 05/11/21 18:56: CBC/BMP Laboratory Tests 05/11/21 08:29 05/11/21 15:03 Microbiology Microbiology 05/10/21 Respiratory Virus Panel (PCR) ([facility]) - Final, Complete 05/10/21 Blood Culture - Preliminary, Resulted No growth after 24 hours . All specim... 05/10/21 Blood Culture - Preliminary, Resulted No growth after 24 hours . All specim... Janeen Latif MD May 11, 2021 19:46
[2021-05-11] MEDS: LACTOBACILLUS ACIDOPHILUS CAP (BACID) PO SCH (20:17)
[2021-05-11] MEDS: VANCOMYCIN HCL 750 MG, VIAL MATE ADAPTER 1 EACH in NS 250 ML IV SCH ×2 (20:17→22:17)
[2021-05-11 20:38] LABS: INR 1.21; PROTHROMBIN TIME 15.8 SECONDS (12.7-14.5)
[2021-05-11 20:39] LABS: PARTIAL THROMBOPLASTIN TIME 47.4 SECONDS (25.9-37.0)
[2021-05-11] MEDS ORDERED: ISOVUE-370 76% 100ML VIAL As Ordered ONE (20:57)
--- NOTE | 2021-05-11 21:54 | REPVR ---
PROCEDURE INFORMATION: Exam: CT Maxillofacial With Contrast Exam date and time: 05/11/2021 9:27 PM Age: 55 years old Clinical indication: Fever; Additional info: Fevers of unknown origin, sinusitis, R/O abscess TECHNIQUE: Imaging protocol: Computed tomography images of the face with intravenous contrast. Radiation optimization: All CT scans at this facility use at least one of these dose optimization techniques: automated exposure control; mA and/or kV adjustment per patient size (includes targeted exams where dose is matched to clinical indication); or iterative reconstruction. Contrast material: ISOVUE 370; Contrast volume: 75 ml; Contrast route: INTRAVENOUS (IV); COMPARISON: CT Head without contrast 05/10/2021 8:27 PM FINDINGS: Orbital cavity: Orbits are normal. Globes are unremarkable. Bones/joints: No acute fracture. Paranasal sinuses: Near complete opacification of the left maxillary sinus. Inflammatory changes demonstrated in the left sphenoid sinus and left ethmoid air cells. Inflammation left frontal ethmoidal recess. Soft tissues: Unremarkable. Vasculature: Bilateral calcifications in the carotid arteries. Nasal cavity: Nasal septum deviated to the left with an ipsilateral nasal spur. IMPRESSION: Near complete opacification of the left maxillary sinus. Inflammatory changes demonstrated in the left sphenoid sinus and left ethmoid air cells. Inflammation left frontal ethmoidal recess. Electronically signed by: Markie Andrade On 05/11/2021 21:54:42 PM
[2021-05-11] MEDS: HumaLOG INSULIN (NovoLOG) PER UNIT SC SCH (22:13)
[2021-05-11] MEDS: MEROPENEM INJ 1 GM in IV 1 EA IV SCH (23:54)
[2021-05-12] VITALS (21 sets, daily range): BP systolic 103–151; BP diastolic 49–82
[2021-05-12] MEDS: busPIRone 10 MG TAB PO SCH ×4 (02:44→17:00)
[2021-05-12] MEDS ORDERED: diphenhydrAMINE 25MG CAP PO ONE (03:30)
[2021-05-12] MEDS ORDERED: ACETAMINOPHEN TAB 650MG DOSE (2X325MG) PO ONE (03:30)
[2021-05-12] MEDS: VANCOMYCIN HCL 750 MG, VIAL MATE ADAPTER 1 EACH in NS 250 ML IV SCH ×6 (03:42→22:10)
[2021-05-12] MEDS: MEROPENEM INJ 1 GM in IV 1 EA IV SCH ×2 (07:38→14:19)
[2021-05-12] MEDS: LOPERAMIDE 2 MG CAPLET PO PRN (08:29)
[2021-05-12] MEDS: VORICONAZOLE 200MG TABLET (VFEND) PO SCH ×2 (08:29→20:34)
[2021-05-12] MEDS: LACTOBACILLUS ACIDOPHILUS CAP (BACID) PO SCH ×2 (08:29→17:19)
[2021-05-12] MEDS: allopurinoL 300 MG TAB PO SCH (08:30)
[2021-05-12] MEDS: FLUoxetine 20 MG CAP PO SCH (08:30)
[2021-05-12] MEDS: VENETOCLAX 100MG TABLET (PATIENT'S OWN MED) PO SCH (08:30)
[2021-05-12] MEDS: ACETAMINOPHEN TAB 650MG DOSE (2X325MG) PO PRN (10:01)
[2021-05-12] MEDS: ACYCLOVIR 200 MG CAPSULE PO SCH ×2 (10:02→20:34)
[2021-05-12] MEDS ORDERED: KETOROLAC 30 MG/ML 1ML VIAL IV ONE (10:20)
[2021-05-12 10:37] LABS: HEMATOCRIT 23.5 % (42.0-52.0); HEMOGLOBIN 8.1 g/dl (13.5-17.5); LYMPH # 0.3 10^3/uL (1.5-5.0); LYMPH % 34.1 % (24.0-44.0); MEAN CORPUSCULAR HEMOGLOBIN 29.7 pg (27.0-33.0); MEAN CORPUSCULAR HGB CONC 34.5 g/dl (32.0-36.5); MEAN CORPUSCULAR VOLUME 86.1 fl (80.0-96.0); MONO # 0.4 10^3/uL (0.0-0.8); MONO % 43.9 % (2.0-8.0); RED BLOOD COUNT 2.73 10^6/uL (4.30-6.10)
[2021-05-12 10:38] LABS: NEUTROPHILS # 0.2 10^3/uL (1.5-8.5); PLATELET COUNT, AUTOMATED 24 10^3/uL (150-450); WHITE BLOOD COUNT 0.8 10^3/uL (4.0-10.0)
[2021-05-12 11:03] LABS: ALT/SGPT 15 U/L (12-78); BILIRUBIN,TOTAL 1.1 MG/DL (0.2-1.0); BLOOD UREA NITROGEN 15 MG/DL (7-18); CARBON DIOXIDE LEVEL 22 MEQ/L (21-32); CHLORIDE LEVEL 107 MEQ/L (98-107); CREATININE FOR GFR 0.73 MG/DL (0.70-1.30); GLOMERULAR FILTRATION RATE > 60.0 (>56); GLUCOSE, FASTING 155 MG/DL (70-100); POTASSIUM SERUM 4.1 MEQ/L (3.5-5.1); SODIUM LEVEL 136 MEQ/L (136-145); TOTAL PROTEIN 5.8 GM/DL (6.4-8.2)
--- NOTE | 2021-05-12 13:14 | IPNPDOC ---
Date Seen The patient was seen on 05/12/21. Progress Note SUBJECTIVE: Received 3 units PRBC, 2 PLTs. Fevers today with highest 102.9, given tylenol and later toradol. Patient complains of some nasal congestion, CT maxillofacial ordered. He denies SOB, chest pain, n/v/d. OBJECTIVE: PHYSICAL EXAMINATION: VITAL SIGNS: See below GENERAL APPEARANCE: Disheveled no distress HEENT: No JVD thyromegaly or cervical lymphadenopathy edentulous CARDIOVASCULAR: S1-S2 regular rate rhythm LUNGS: No wheezing rales or rhonchi clear to auscultation ABDOMEN: Obese soft nontender nondistended positive bowel sounds x4 quadrants No rebound or guarding EXTREMITIES/INTEGUMENTARY: Right forearm peripheral IV multiple bruises bilateral upper and lower extremities LABORATORY DATA: See below. IMAGING: CT chest 05/10/21: Multiple lesions in bilateral lungs. The largest measures in the right upper lobe measuring 1.1 cm. Findings suspicious for neoplastic lesion. Tissue diagnosis is suggested. CT chest 08/2020 (scanned image in our EMR): Approximately 6 m consolidative mass in the left lower lobe with surrounding groundglass attenuation as well as multiple bilateral small scattered pulmonary nodules in the peripheral and lower lung predominant distribution. 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 Aspergillosis is a differential consideration. Although dictating lesions are identified, a less likely differential consideration would BE septic pulmonary emboli with a left lower lobe infarct. Nonspecific 1.5 x 1.0 cm soft tissue nodule in the anterior right chest wall superior to the patient's right nipple. Correlation with physical exam is recommended. Coronary artery calcifications which are imaging biomarkers for cardiovascular disease. MICROBIOLOGY: Blood cultures x 2 sets: NG sputum cx: ordered C diff.: pending Lyme: pending Mycoplasma, legionella, urine strep: pending F/u debridement cx, GS. ASSESSMENT: 55-year-old male with history of AML , recently treated for neutropenic fever on 05/04/2021 and treated for community-acquired pneumonia on Levaquin, presents as a direct admission from the [facility] for neutropenic fever, SIRS without identified infection. PLAN: Neutropenic fever r/o fungal infection vs. 2/2 to necrotic coccyx decubitus vs. sinus infection, sepsis -Fever > 102.9 at times still, had all day with and without blood products running. Worsening tachycardia with HR 97-116. -H/H slightly improved but not correcting appropriately, PLTs 12--> 24. -CT chest showed multiple lesions in b/l lungs. CT from 08/2020 (scanned image to our EMR) showed mass and scattered pulmonary lung nodules , concerning for inflammatory/infection at that time as well. -D/w med/onc Dr. Lu who spoke with patient's medical oncologist at [facility] (Dr. Srivastava). At this time the patient is due to get a bone marrow aspiration biopsy on 05/16/2021 at [facility]. He was put on a allogenic transplant list by his medical oncologist at that facility. -Normally goal would be to keep platelets > 10, hemoglobin >7; however, if needing bronchoscopy he will need Hgb >9 and PLTs >40-50- requiring a significant more blood product. He should only receive irradiated blood product. -CT maxillofacial above. Consulted Dr. Briceno to see, possibly aspirate for cultures -General surgery consulted for debridement of necrotic coccyx decubitus. Asked to send for fungal cx as well. -Blood cultures no growth at 24 hours, sputum culture pending -Neutropenic precautions -MRSA neg. Lyme,aspergillus testing pending. -Discussed case with both Dr. Paz (ID) and Dr. Holt (pulmonary) who also together discussed patient. Likely bronchoscopy with BAL on 05/13/21 if PLTs, Hgb continue to improve. -Stopped Zosyn 05/11/21, started meropenem. C/w vancomycin, antifungal and antiviral prophylaxis for now. Alternating tylenol and toradol for fevers. -Dr. Paz following and has call out to patient's med/onc at [facility] to further discuss case and need to continue chemotherapy with current sepsis diagnosis. 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 -Per Dr. Lu (who has spoken with patient's med/onc specialist Dr. Srivastava) patient is supposed to get a bone marrow aspiration biopsy on 05/16/2021 at [facility]. He was put on a allogenic transplant list by his medical oncologist at that facility. -Neupogen stopped and it was requested that venetoclax continue- will again discuss with med/onc -Since 05/10/21, patient has received 4 PLTS (one as outpatient at [facility]) and 2 PRBC. Ordered for another unit PRBC and 2 additional platelets. F/u CBC. -See blood level goals for bronchoscopy above. Hypertension -C/w lisinopril with holding parameters Diabetes -Neutropenic diet consistent carbohydrate sliding scale with coverage with before every meal fingersticks and nightly Obstructive sleep apnea, chronic -On RA Depression -stable -C/w home meds Chronic diarrhea slightly improved -C. diff PCR ordered -On probiotic. DVT prophylaxis -teds, SCD DISPOSITION: ID, general surgery, med/onc and pulmonary consulted. Awaiting discharge summary from [facility] to review. VS, I&O, 24H, Fishbone Vital Signs/I&O Vital Signs Date Time Temp Pulse Resp B/P (MAP) Pulse Ox O2 Delivery O2 Flow Rate FiO2 05/12/21 12:08 98.3 92 16 131/69 98 Room Air I&O- Last 24 Hours up to 6 AM 05/12/21 06:00 Intake Total 5199 ml Output Total 1230 ml Balance 3969 ml Laboratory Data 24H LABS Laboratory Tests 2 05/11/21 15:03: Immature Granulocyte % (Auto) 1.4, Neutrophils (%) (Auto) 16.7L, Lymphocytes (%) (Auto) 23.6L, Monocytes (%) (Auto) 58.3H, Eosinophils (%) (Auto) 0.0, Basophils (%) (Auto) 0.0, Neutrophils # (Auto) 0.1L, Lymphocytes # (Auto) 0.2L, Monocytes # (Auto) 0.4, Eosinophils # (Auto) 0.0, Basophils # (Auto) 0.0, Nucleated Red Blood Cells % (auto) 0.0, Immature Platelet Fraction 3.8 05/11/21 16:57: Bedside Glucose (Misc Panel) 108H 05/11/21 18:56: Vancomycin Level Trough 9.1L 05/11/21 20:03: Prothrombin Time 15.8H, Prothromb Time International Ratio 1.21, Activated Partial Thromboplast Time 47.4H 05/11/21 22:02: Bedside Glucose (Misc Panel) 194H 05/12/21 07:39: Bedside Glucose (Misc Panel) 130H 05/12/21 10:18: Immature Granulocyte % (Auto) 0.0, Neutrophils (%) (Auto) 22.0L, Lymphocytes (%) (Auto) 34.1, Monocytes (%) (Auto) 43.9H, Eosinophils (%) (Auto) 0.0, Basophils (%) (Auto) 0.0, Neutrophils # (Auto) 0.2L, Lymphocytes # (Auto) 0.3L, Monocytes # (Auto) 0.4, Eosinophils # (Auto) 0.0, Basophils # (Auto) 0.0, Nucleated Red Blood Cells % (auto) 0.0, Anion Gap 7L, Glomerular Filtration Rate > 60.0, Calcium Level 8.0L, Total Bilirubin 1.1H, Aspartate Amino Transf (AST/SGOT) 16, Alanine Aminotransferase (ALT/SGPT) 15, Alkaline Phosphatase 130H, Total Protein 5.8L, Albumin 2.0L, Albumin/Globulin Ratio 0.5 05/12/21 10:54: 05/12/21 12:21: Bedside Glucose (Misc Panel) 136H CBC/BMP Laboratory Tests 05/11/21 15:03 05/12/21 10:18 Microbiology Microbiology 05/10/21 Respiratory Virus Panel (PCR) ([facility]) - Final, Complete 05/10/21 Blood Culture - Preliminary, Resulted No growth after 24 hours . All specim... 05/10/21 Blood Culture - Preliminary, Resulted No growth after 24 hours . All specim... Janeen Latif MD May 12, 2021 13:14
[2021-05-12 13:56] LABS: CLOSTRIDIUM DIFFICILE PCR POSITIVE (NEGATIVE)
[2021-05-12] MEDS ORDERED: LIDOCAINE W/EPINEPHRINE 1% 20ML VIAL SC SCH (14:35)
--- NOTE | 2021-05-12 15:34 | CR.PDOC ---
General Date of Consultation: May 12, 2021 Consultation REASON FOR PULMONOLOGY CONSULTATION/CHIEF COMPLAINT: HISTORY OF PRESENT ILLNESS: 55-year-old male with a history of AML diagnosed approximately 1 year ago status post several rounds of chemotherapy last of which was approximately 1 month ago who presents to the ED with a complaint of fever. Proxy 1 month ago the patient was admitted to [facility] for fevers and his work-up revealed a left lower lobe consolidative mass with surrounding groundglass attenuation. The [facility] did not have bronchoscopy at this time. The patient presents again today for recurrent fevers at home. He also complains of diarrhea which has been going on for months and he says that it is chronic. He denies any shortness of breath, chest pain, weight loss, night sweats, headache, lower extremity swelling, abdominal pain, vision changes. To note the patient says that he has JIMBO and he uses CPAP at home where he thinks the pressure is either 15 to 18 cm of water. 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 Denies recreational drug use or tobacco abuse. never smoker Occasional alcohol FAMILY HISTORY: Mother age 69 lung cancer Father age 70 CVA ALLERGIES: Please see below. HOME MEDICATIONS: Please see below. REVIEW OF SYSTEMS: CONSTITUTIONAL: Denies fever, chills, night sweats, weight loss EYES: No blurring of vision or redness. ENT: No sore throat. No epistaxis. No tinnitus. CARDIOVASCULAR: No chest pain. No palpitations. RESPIRATORY: See HPI GASTROINTESTINAL: + diarrhea chronic, No nausea, vomiting, or diarrhea. GENITOURINARY: No frequency, urgency, nocturia. No hematuria or dysuria. MUSCULOSKELETAL: No arthralgias or myalgias. INTEGUMENTARY: No rash or swelling NEUROLOGIC: No headache. No numbness or tingling of the extremities. No weakness. PSYCHIATRIC: No confusion or mood changes. ENDOCRINE: No fatigue, no goiter. HEMATOLOGICAL: + petechia PHYSICAL EXAMINATION: VITAL SIGNS: Please see below. GENERAL APPEARANCE: Alert and awake. Morbidly obese HEENT: no thyromegaly, trachea midline, PERRLA. normal mucous membranes RESPIRATORY: CTA B/L, good air entry. on room air, spo2 98% CARDIOVASCULAR: +s1 s2, no murmurs. ABDOMEN: nontender, not distended, +BS EXTREMITIES: no edema or erythema. palpable distal pulses SKIN: no rash, no purpura NEUROLOGICAL: no sensory or motor deficits, orientedx3. LABS/IMAGING: ct chest 05/10/21 Lungs: Spiculated lesion in the right upper lobe measuring 1.1 cm. A 2nd lesion at the right lung base measuring 5 mm. 5 mm nodule in the lingula. Pleural spaces: Trace left pleural effusion. Atelectasis at the left lung base. Heart: Unremarkable. No cardiomegaly. No pericardial effusion. Aorta: Unremarkable. No aortic aneurysm. Lymph nodes: Unremarkable. No enlarged lymph nodes. Bones/joints: Degenerative changes of the spine. Soft tissues: Unremarkable. IMPRESSION: Multiple lesions in bilateral lungs. The largest measures in the right upper lobe measuring 1.1 cm. Findings suspicious for neoplastic lesion. Tissue diagnosis is suggested. CT chest 10/01/20 outside report There is an irregular 6.2 x 5 x 6.2 cm consolidative mass in the left lower lobe with surrounding groundglass attenuation. There are also multiple bilateral small scattered solid nodules in a peripheral and lower lung predominant distribution. Some of these nodules have subtle associated groundglass attenuation. Mild diffuse bronchial wall thickening without bronchiectasis. Nonspecific 1.5 x 1.0 cm soft tissue nodule in the anterior right chest wall. ASSESSMENT: 55-year-old male with a significant past medical history for AML status post chemotherapy last cycle was 1 month ago, morbid obesity, JIMBO on CPAP 15 cm of water who is admitted for neutropenic fever and diarrhea. His work-up revealed the presence of bilateral lung nodules and a left lower lobe consolidation versus atelectasis. 1. Bilateral nodular densities with a left lower lobe consolidation plus or minus atelectasis in a patient with neutropenia from AML and having fevers. The differential includes opportunistic infection such as fungal, however neoplasm cannot be excluded. 2. History of AML status post chemotherapy last cycle 1 month ago 3. Pancytopenia 4. History of JIMBO compliant with PAP therapy at home 5. History of chronic diarrhea with C. difficile in the past and currently he has a positive C. difficile PCR. PLAN: * The patient is asymptomatic from a pulmonary standpoint and he has 98% on room air. I discussed the risks and benefits of bronchoscopy including respiratory failure and bleeding. He communicates understanding and is in agreement to have the procedure. Patient will have BAL done of the left lower lobe. * Patient will need to have a platelet count of at least 30,000 in order to safely have the bronchoscopy performed * Continue with CPAP 15 cmh2o every night. Thank you for the courtesy of this consult. Please text me on Vocera for any questions or concerns. Bret Holt MD Pulmonary/Critical Care Vital Signs/I&O Vital Signs Date Time Temp Pulse Resp B/P (MAP) Pulse Ox O2 Delivery O2 Flow Rate FiO2 05/12/21 14:15 98.1 91 19 134/67 98 Room Air I&O- Last 24 Hours up to 6 AM 05/12/21 06:00 Intake Total 5199 ml Output Total 1230 ml Balance 3969 ml Laboratory Data Labs 24H Laboratory Tests 2 05/11/21 15:03: Immature Granulocyte % (Auto) 1.4, Neutrophils (%) (Auto) 16.7L, Lymphocytes (%) (Auto) 23.6L, Monocytes (%) (Auto) 58.3H, Eosinophils (%) (Auto) 0.0, Basophils (%) (Auto) 0.0, Neutrophils # (Auto) 0.1L, Lymphocytes # (Auto) 0.2L, Monocytes # (Auto) 0.4, Eosinophils # (Auto) 0.0, Basophils # (Auto) 0.0, Nucleated Red Blood Cells % (auto) 0.0, Immature Platelet Fraction 3.8 05/11/21 16:57: Bedside Glucose (Misc Panel) 108H 05/11/21 18:56: Vancomycin Level Trough 9.1L 05/11/21 20:03: Prothrombin Time 15.8H, Prothromb Time International Ratio 1.21, Activated Partial Thromboplast Time 47.4H 05/11/21 22:02: Bedside Glucose (Misc Panel) 194H 05/12/21 07:39: Bedside Glucose (Misc Panel) 130H 05/12/21 10:18: Immature Granulocyte % (Auto) 0.0, Neutrophils (%) (Auto) 22.0L, Lymphocytes (%) (Auto) 34.1, Monocytes (%) (Auto) 43.9H, Eosinophils (%) (Auto) 0.0, Basophils (%) (Auto) 0.0, Neutrophils # (Auto) 0.2L, Lymphocytes # (Auto) 0.3L, Monocytes # (Auto) 0.4, Eosinophils # (Auto) 0.0, Basophils # (Auto) 0.0, Nucleated Red Blood Cells % (auto) 0.0, Anion Gap 7L, Glomerular Filtration Rate > 60.0, Calcium Level 8.0L, Total Bilirubin 1.1H, Aspartate Amino Transf (AST/SGOT) 16, Alanine Aminotransferase (ALT/SGPT) 15, Alkaline Phosphatase 130H, Total Protein 5.8L, Albumin 2.0L, Albumin/Globulin Ratio 0.5 05/12/21 10:54: Clostridium difficile [id number] PRESUMPTIVE NEGATIVE, Clostridium difficile Toxin (PCR) POSITIVEA 05/12/21 12:21: Bedside Glucose (Misc Panel) 136H CBC/BMP Laboratory Tests 05/11/21 15:03 05/12/21 10:18 Microbiology Microbiology 05/10/21 Respiratory Virus Panel (PCR) (KANDY) - Final, Complete 05/10/21 Blood Culture - Preliminary, Resulted No growth after 24 hours . All specim... 05/10/21 Blood Culture - Preliminary, Resulted No growth after 24 hours . All specim... Allergies Coded Allergies: metformin (Verified Allergy, Intermediate, diarrhea, 07/21/20) Home Medications Scheduled Acyclovir (Acyclovir) 400 Mg Tablet, 400 MG PO BID, (Reported) Buspirone HCl (Buspirone HCl) 10 Mg Tablet, 10 MG PO BID, (Reported) Ertugliflozin Pidolate (Steglatro) 15 Mg Tablet, 15 MG PO DAILY, (Reported) Fluoxetine Hcl (Fluoxetine HCl) 40 Mg Capsule, 40 MG PO DAILY, (Reported) Levofloxacin (Levofloxacin) 750 Mg Tablet, 750 MG PO DAILY@06 for 5 Days, #5 Lisinopril (Lisinopril) 20 Mg Tablet, 20 MG PO DAILY, (Reported) Venetoclax (Venclexta) 100 Mg Tablet, 100 MG PO DAILY, (Reported) Voriconazole (Voriconazole) 200 Mg Tablet, 200 MG PO BID, (Reported) allopurinoL (allopurinoL) 300 Mg Tablet, 300 MG PO DAILY, (Reported) BRET HOLT MD May 12, 2021 15:34
[2021-05-12] MEDS: FIDAXOMICIN 200 MG TAB (DIFICID) PO SCH (17:19)
--- NOTE | 2021-05-12 17:48 | CR.PDOC ---
General Date of Consultation: May 12, 2021 Referring Provider: Janeen Latif MD Attending Physician: Melonie Paz MD Consultation REASON FOR INFECTIOUS DISEASE CONSULTATION: Neutropenic fevers; possible fungal infection HISTORY OF PRESENT ILLNESS: Mr. Francis is a 55-year-old male with a recent relapse of AML in March, presents to [facility] with a direct admission from the [facility] on Monday (05/10) for neutropenic fever. Patient has received care from many facilities, the most recent from [facility] and this HPI is obtained from patient as well as from discharge summaries from collateral sources. Patient states that he received 1 unit of platelet transfusion and waiting to receive another; however, developed a high fever and was subsequently admitted for further workup. For the past 2 days, he has been spiking intermittent fevers with a TMax of 102.9F yesterday. He says he has had intermittent fevers for the past 3-4 weeks, since his discharge from [facility] at end of Apr. He reports hemoptysis last month and has a chronic cough from post nasal drip but denies any increased cough or sputum production (white foamy secretions) tht are off from his baseline. He denies any current hemopytsis. He was treated for left lower lobe PNA at [facility] and is s/p abx regimen. Pt has a hx of chronic diarrhea for which he takes imodium BID which is able to control his symptoms; however, reports loose watery stools (3-4 episodes) per day since being admitted on Monday. Of note, he was initially diagnosed with AML in 08/2020 and completed several courses of chemo until 10/2020 and went into remission. He had relapsed in late March and restarted on chemotherapy in early April, which is when his fevers began. He was previously admitted to [facility] for 2 weeks (04/15-04/29) for neutropenic fevers, rigors, diarrhea, weakness, fatigue, coughing, and AMS. During his hospital course, his CT chest showed left lower lobe consolidation, ground-glass opacities, and a small focus in the left apex. He was initially given vancomycin and cefepime then switched to IV moxifloxacin, Cresemba and cefepime. After ID consult, he was taken off Cresemba and treated with voriconazole for possible fungal infection. He was also given prophylactic micafungin and acyclovir. According to the patient, no bronchoscopy was performed. He was admitted again from 04/13-05/06 to [facility] for neutropenic fevers and CAP and found to have right middle lobe infiltrate on CXR and empirically treated with levofloxacin. CT chest of this visit shows right upper lobe and lower lobe lesions, as well as the left lobar consolidations that were present from [place]. Upon chart review, he had left consolidations back in 09/2020. He was empirically treated with zosyn and vancomycin with voriconazole and acyclovir. Zosyn was then switched to meropenem. Maxillofacial CT also shows left maxillary, ethmoid, and sphenoid opacification, which was also present on imaging in [place]. ALLERGIES: Metformin PAST MEDICAL HISTORY: Neutropenic fever AML- diagnosed 08/2020; relapse in 03/2021 Morbid obesity BMI of 39.3 DM-II HTN HLD JIMBO CKD Anxiety/Depression PAST SURGICAL HISTORY: Right rotator cuff surgery Bone marrow biopsy X2 FAMILY HISTORY: Father: from CVA Mother: from lung cancer Siblings: 1 brother and 2 sisters SOCIAL HISTORY: Marital status and/or living arrangements: Lives alone. 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 MEDICATIONS: Meropenem 1gm IV Q8H Vancomycin 750mg IV Q8H Voriconazole 200mg PO BID Acyclovir 400mg PO BID Fidaxomicin 200mg PO BID Venetoclax 100mg PO daily Lisinopril 20mg PO daily Fluoxetine 40mg PO daily Insulin sliding scale and hypoglycemic protocol REVIEW OF SYSTEMS: CONSTITUTIONAL: Fevers for the past 1 month, generalized weakness and fatigue HEENT: Denies headaches, dizziness CARDIOVASCULAR: Denies chest pain, palpitations RESPIRATORY: Productive cough with white sputum for the past few weeks. Denies shortness of breath GENITOURINARY: Denies pyuria, dysuria, hematuria GASTROINTESTINAL: 3-4 episodes of watery diarrhea daily since admission. Chronic diarrhea is usually resolved with daily Imodium. Denies abdominal pain, N/V SKIN: Easy and multiple bruises/ecchymoses throughout the body. NEUROLOGICAL: AMS during [place] admission in April and short episode of AMS this past weekend HEMATOLOGIC/LYMPHATIC: Has not noticed any new lumps ALLERGIC/IMMUNOLOGIC: Post-nasal drip for past few weeks PHYSICAL EXAMINATION: VITAL SIGNS: Please see below. GENERAL APPEARANCE: Patient is an obese, pale-looking male who does not appear to be in acute distress. HEENT: NC. AT. Right eye is red. Sclera nonicteric. Mucus membranes moist. Small petechiae in the back of the throat. RESPIRATORY: Mild rhonchi most prominent around the right middle and lower lobes. Crackles heard at the left base. CARDIOVASCULAR: Regular rate and rhythm. No obvious murmurs, gallops, or rubs. ABDOMEN: Soft, obese abdomen. Nontender to palpation. Positive bowel sounds. Ecchymoses present throughout the abdomen. 2 scratches along lower ribs in left flank. EXTREMITIES: 2+ radial and dorsalis pedis pulses bilaterally. Edema appreciated at bilateral ankles. Multiple cuts and ecchymoses present on bilateral upper and lower extremities. Psoriasis-like lesion on right preciado. SKIN: Multiple bruises/ecchymoses throughout the body. 2 large scratches on his left flank and multiple smaller scratches on his lower extremities. Small nodules present in sternum, under left breast, in left thoracic intercostal space and left armpit. Necrotic sacral decubitus ulcer 3.5cmX1.8cmX0.6cm with smaller noncommunicating 2cm ulcer just inferior. NEUROLOGICAL: No focal deficits appreciated. PSYCHIATRIC: Mood appears stable. MICROBIOLOGY: 05/10/21 Blood cultures negative X2 05/10/21 Respiratory panel negative IMAGIN05/11/[address] "FINDINGS: Paranasal sinuses: Near complete opacification of the left maxillary sinus. Inflammatory changes demonstrated in the left sphenoid sinus and left ethmoid air cells. Inflammation left frontal ethmoidal recess. Soft tissues: Unremarkable. Vasculature: Bilateral calcifications in the carotid arteries. Nasal cavity: Nasal septum deviated to the left with an ipsilateral nasal spur. IMPRESSION: Near complete opacification of the left maxillary sinus. Inflammatory changes demonstrated in the left sphenoid sinus and left ethmoid air cells. Inflammation left frontal ethmoidal recess." 05/10/[address] "FINDINGS: Brain: No acute intracranial hemorrhage, midline shift or significant intracranial mass effect. Minimal patchy decreased attenuation of the supratentorial white matter is likely secondary to chronic microvascular ischemia. Cerebral ventricles: No hydrocephalus. Paranasal sinuses: 2.4 cm left maxillary sinus mucous retention cyst or polyp. Minimal additional paranasal sinus disease. IMPRESSION: No acute intracranial abnormality." 05/10/[address] "FINDINGS: Lungs: Spiculated lesion in the right upper lobe measuring 1.1 cm. A 2nd lesion at the right lung base measuring 5 mm. 5 mm nodule in the lingula. Pleural spaces: Trace left pleural effusion. Atelectasis at the left lung base. Lymph nodes: Unremarkable. No enlarged lymph nodes. Bones/joints: Degenerative changes of the spine. Soft tissues: Unremarkable. IMPRESSION: Multiple lesions in bilateral lungs. The largest measures in the right upper lobe measuring 1.1 cm. Findings suspicious for neoplastic lesion. Tissue diagnosis is suggested." 05/10/21 Abd/pelvis CT "FINDINGS: Lungs: Atelectasis at the visualized left lung base. Liver: Liver is enlarged measuring 24 cm. Gallbladder and bile ducts: Cholelithiasis. Pancreas: Normal. No ductal dilation. Spleen: Spleen is enlarged measuring 17 cm. Lymph nodes: Unremarkable. No enlarged lymph nodes. Soft tissues: Bilateral inguinal hernias containing fat. IMPRESSION: 1. Hepatosplenomegaly. 2. Atelectasis at the visualized left lung base." IMPRESSION AND PLAN: 1. Chronic pneumonia- From collateral source, it seems that patient has had PNA since his admission on 04/15/21 at [facility] with a LLL PNA that was treated wtih moxifloxacin, cefepime, and given prophalyxis for fungal etiology with IV cresemba; however, there's still evidence of an irregular 6.2 x 5 x 6.2 cm consolidative mass in the left lower lobe with surrounding groundglass attenuation. There's also new developments of new lesions on the right side of his lung within 2 weeks of his discharge. Given his immunocompromised state, and imaging findings with atoll/reverse halo sign, it is suspicious for a fungal etiology. Have discussed case with pulmonary who has graciously agreed to bonch patient tomorrow if we can get his platelet count at least 30,000. Patient continues to saturate above 90% on room air and is covered on merrem 1gm IV q8h, Vancomycin 750mg IV q8h and voriconazole 200mg PO BID and acyclovir 400mg PO BID. Will obtain a voariconazole level to determine therapeutic range and also order for a sputum culture and fungal smear and cultures. 2. Neutropenic sepsis, multifactorial-This could be 2/2 to resistant fungal PNA vs necrotic coccyx decubitus ulcer vs left sided sinus infection vs C. diff infection or a combination of these. C/w abx regimen mentioned in 1. 3. Persistent acute rhinosinusitis- There appears to be a persistent finding of near complete opacification and abnormal masslike enhancement involving his left maxillary, sphenoid, and ethmoid sinuses, which have been present during his hospital course at [facility] in Apr. ENT at [place] was consulted but did not re commend any interventions and no aspirate was performed and sent for culture. Invasive fungal rhinosinusitis (aspergillosis, fusarium, and mucorales) is on the differential given patient's immunocompromised state and recommend an ENT consult for sinus aspiration and culture to determine the etiology. 4. C. diff infection- Patient has history of chronic diarrhea with symptoms controlled with imodium BID but developed new onset loose watery stools x3-4 per day during this hospitalization. He's tested positive for cdiff. Given his immunocompromised state, will start him on dificid 200mg PO BID with isolation precautions. 5. Necrotic coccyx decubitus ulcer- This could be a source of his fevers. On exam today, the ulcer is measured at 3.5cmX1.8cmX0.6cm with smaller noncommunicating 2cm ulcer just inferiorly. Recommend surgical consultation and debridement and cultures for possible infectious etiology. Thank you for this consultation. Jose Manuel Le resident physician was present and supervised the entirety of the interview and have edited the entirety of this note and agree with what is documented above by the medical student. Vital Signs/I&O Vital Signs Date Time Temp Pulse Resp B/P (MAP) Pulse Ox O2 Delivery O2 Flow Rate FiO2 05/12/21 09:30 102.1 102 146/77 Room Air 05/12/21 08:30 14 98 I&O- Last 24 Hours up to 6 AM 05/12/21 06:00 Intake Total 5199 ml Output Total 1230 ml Balance 3969 ml Laboratory Data Labs 24H Laboratory Tests 2 05/11/21 11:58: Bedside Glucose (Misc Panel) 94 05/11/21 15:03: Immature Granulocyte % (Auto) 1.4, Neutrophils (%) (Auto) 16.7L, Lymphocytes (%) (Auto) 23.6L, Monocytes (%) (Auto) 58.3H, Eosinophils (%) (Auto) 0.0, Basophils (%) (Auto) 0.0, Neutrophils # (Auto) 0.1L, Lymphocytes # (Auto) 0.2L, Monocytes # (Auto) 0.4, Eosinophils # (Auto) 0.0, Basophils # (Auto) 0.0, Nucleated Red Blood Cells % (auto) 0.0, Immature Platelet Fraction 3.8 05/11/21 16:57: Bedside Glucose (Misc Panel) 108H 05/11/21 18:56: Vancomycin Level Trough 9.1L 05/11/21 20:03: Prothrombin Time 15.8H, Prothromb Time International Ratio 1.21, Activated Partial Thromboplast Time 47.4H 05/11/21 22:02: Bedside Glucose (Misc Panel) 194H 05/12/21 07:39: Bedside Glucose (Misc Panel) 130H 05/12/21 10:18: Immature Granulocyte % (Auto) 0.0, Neutrophils (%) (Auto) 22.0L, Lymphocytes (%) (Auto) 34.1, Monocytes (%) (Auto) 43.9H, Eosinophils (%) (Auto) 0.0, Basophils (%) (Auto) 0.0, Neutrophils # (Auto) 0.2L, Lymphocytes # (Auto) 0.3L, Monocytes # (Auto) 0.4, Eosinophils # (Auto) 0.0, Basophils # (Auto) 0.0, Nucleated Red Blood Cells % (auto) 0.0, Anion Gap 7L, Glomerular Filtration Rate > 60.0, Calcium Level 8.0L, Total Bilirubin 1.1H, Aspartate Amino Transf (AST/SGOT) 16, Alanine Aminotransferase (ALT/SGPT) 15, Alkaline Phosphatase 130H, Total Protein 5.8L, Albumin 2.0L, Albumin/Globulin Ratio 0.5 05/12/21 10:54: CBC/BMP Laboratory Tests 05/11/21 15:03 05/12/21 10:18 Microbiology Microbiology 05/10/21 Respiratory Virus Panel (PCR) (KANDY) - Final, Complete 05/10/21 Blood Culture - Preliminary, Resulted No growth after 24 hours . All specim... 05/10/21 Blood Culture - Preliminary, Resulted No growth after 24 hours . All specim... Allergies Coded Allergies: metformin (Verified Allergy, Intermediate, diarrhea, 07/21/20) Home Medications Scheduled Acyclovir (Acyclovir) 400 Mg Tablet, 400 MG PO BID, (Reported) Buspirone HCl (Buspirone HCl) 10 Mg Tablet, 10 MG PO BID, (Reported) Ertugliflozin Pidolate (Steglatro) 15 Mg Tablet, 15 MG PO DAILY, (Reported) Fluoxetine Hcl (Fluoxetine HCl) 40 Mg Capsule, 40 MG PO DAILY, (Reported) Levofloxacin (Levofloxacin) 750 Mg Tablet, 750 MG PO DAILY@06 for 5 Days, #5 Lisinopril (Lisinopril) 20 Mg Tablet, 20 MG PO DAILY, (Reported) Venetoclax (Venclexta) 100 Mg Tablet, 100 MG PO DAILY, (Reported) Voriconazole (Voriconazole) 200 Mg Tablet, 200 MG PO BID, (Reported) allopurinoL (allopurinoL) 300 Mg Tablet, 300 MG PO DAILY, (Reported) GME ATTESTATION GME ATTESTATION My faculty preceptor for this patient encounter was physically present during the encounter and was fully available. All aspects of the patient interview, examination, medical decision making process, and medical care plan development were reviewed and approved by the faculty preceptor. The faculty preceptor is aware and concurs with the plan as stated in the body of this note and will attest to such by his/her cosignature. CHELSEY DE GUZMAN OMS-3 May 12, 2021 11:27 Jose Manuel Russell DO May 12, 2021 18:52
[2021-05-12] MEDS: HumaLOG INSULIN (NovoLOG) PER UNIT SC SCH (20:49)
[2021-05-13] VITALS (15 sets, daily range): BP systolic 135–186; BP diastolic 69–80
[2021-05-13] MEDS: MEROPENEM INJ 1 GM in IV 1 EA IV SCH ×2 (01:35→07:03)
[2021-05-13 03:07] LABS: BASO % 1.4 % (0.0-1.0); HEMATOCRIT 22.4 % (42.0-52.0); HEMOGLOBIN 7.6 g/dl (13.5-17.5); LYMPH # 0.2 10^3/uL (1.5-5.0); MEAN CORPUSCULAR HEMOGLOBIN 29.5 pg (27.0-33.0); MEAN CORPUSCULAR HGB CONC 33.9 g/dl (32.0-36.5); MEAN CORPUSCULAR VOLUME 86.8 fl (80.0-96.0); MONO # 0.3 10^3/uL (0.0-0.8); MONO % 43.2 % (2.0-8.0); NEUTROPHILS % 28.4 % (36.0-66.0); RED BLOOD COUNT 2.58 10^6/uL (4.30-6.10); WHITE BLOOD COUNT 0.7 10^3/uL (4.0-10.0)
[2021-05-13 03:08] LABS: NEUTROPHILS # 0.2 10^3/uL (1.5-8.5); PLATELET COUNT, AUTOMATED 26 10^3/uL (150-450)
[2021-05-13 03:34] LABS: ALBUMIN 1.8 GM/DL (3.2-5.2); ALT/SGPT 13 U/L (12-78); BILIRUBIN,TOTAL 2.1 MG/DL (0.2-1.0); BLOOD UREA NITROGEN 16 MG/DL (7-18); CALCIUM LEVEL 7.9 MG/DL (8.5-10.1); CARBON DIOXIDE LEVEL 24 MEQ/L (21-32); CHLORIDE LEVEL 108 MEQ/L (98-107); CREATININE FOR GFR 0.58 MG/DL (0.70-1.30); GLOMERULAR FILTRATION RATE > 60.0 (>56); GLUCOSE, FASTING 173 MG/DL (70-100); POTASSIUM SERUM 3.9 MEQ/L (3.5-5.1); SODIUM LEVEL 138 MEQ/L (136-145); TOTAL PROTEIN 5.5 GM/DL (6.4-8.2); VANCOMYCIN LEVEL TROUGH 15.2 UG/ML (10.0-20.0)
[2021-05-13] MEDS: VANCOMYCIN HCL 750 MG, VIAL MATE ADAPTER 1 EACH in NS 250 ML IV SCH ×2 (04:26→05:48)
--- NOTE | 2021-05-13 09:33 | ROOPDOC ---
[facility] Report Of Operation Report of Operation DATE OF PROCEDURE: 05/12/21 PREPROCEDURE DIAGNOSES: necrotic pressure wound coccyx (midline). POSTPROCEDURE DIAGNOSES: necrotic pressure wound coccyx (midline). PROCEDURE PERFORMED: excisional debridement of skin and soft tissue, necrotic wound at cocyx. SURGEON: Justice Patterson MD ENGAGEMENT MGR: MD ANESTHESIA: . ESTIMATED BLOOD LOSS: Approximately mL. COMPLICATIONS: . REMARKS: . FINDINGS: SPECIMENS REMOVED: PROCEDURE NOTE: . DESCRIPTION OF PROCEDURE: . JUSTICE PATTERSON MD May 13, 2021 09:33
[2021-05-13] MEDS: LACTOBACILLUS ACIDOPHILUS CAP (BACID) PO SCH ×2 (09:49→17:05)
[2021-05-13] MEDS: FIDAXOMICIN 200 MG TAB (DIFICID) PO SCH ×2 (09:50→20:13)
[2021-05-13] MEDS: busPIRone 10 MG TAB PO SCH ×4 (09:50→20:13)
[2021-05-13] MEDS: FLUoxetine 20 MG CAP PO SCH (09:51)
[2021-05-13] MEDS: allopurinoL 300 MG TAB PO SCH (09:53)
[2021-05-13] MEDS: ACYCLOVIR 200 MG CAPSULE PO SCH ×2 (09:53→20:13)
[2021-05-13] MEDS: VORICONAZOLE 200MG TABLET (VFEND) PO SCH ×2 (10:03→20:12)
--- NOTE | 2021-05-13 10:48 | IPNPDOC ---
Date Seen The patient was seen on 05/13/21. Progress Note SUBJECTIVE: PLTs given -05/13/21 have not effected PLTs, still low at 26. At this time patient has been afebrile since 05/12/21, since initiation of fidaxomicin for c. diff. Decreasing bowel movements since midnight. At this time risk of bleeding with sinus aspiration, bronchoscopy high and will cancel bronchoscopy. Discussed with pulmonary and ID who agrees. Updated ENT. Stopped Meropenem, Vancomycin. ID spoke with Dr. Srivastava who is ok with stopping chemotherapy. Patient feels improved. He denies SOB, chest pain, n/v/d. OBJECTIVE: PHYSICAL EXAMINATION: VITAL SIGNS: See below GENERAL APPEARANCE: NAD, resting in bed. AAOx 3 HEENT: No JVD thyromegaly or cervical lymphadenopathy, no upper teeth CARDIOVASCULAR: S1-S2 regular rate rhythm LUNGS: No wheezing rales or rhonchi clear to auscultation, CTAB ABDOMEN: Obese, soft, nontender, nondistended positive bowel sounds x4 quadrants, No rebound or guarding INTEGUMENTARY: 4 cmx 1.5 cm coccyx decubitus appears cleaned out and packed, +foul smelling. Another very small 1 cm. x0.75 cm Stage I ulcer below coccyx ulcer. EXTREMITIES: Right forearm peripheral IV multiple bruises bilateral upper and lower extremities Neuro: CN 2-12 intact, no focal deficits LABORATORY DATA: See below. IMAGING: CT chest 05/10/21: Multiple lesions in bilateral lungs. The largest measures in the right upper lobe measuring 1.1 cm. Findings suspicious for neoplastic lesion. Tissue diagnosis is suggested. CT chest 08/2020 (scanned image in our EMR): Approximately 6 m consolidative mass in the left lower lobe with surrounding groundglass attenuation as well as multiple bilateral small scattered pulmonary nodules in the peripheral and lower lung predominant distribution. 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 Aspergillosis is a differential consideration. Although dictating lesions are identified, a less likely differential consideration would BE septic pulmonary emboli with a left lower lobe infarct. Nonspecific 1.5 x 1.0 cm soft tissue nodule in the anterior right chest wall superior to the patient's right nipple. Correlation with physical exam is recommended. Coronary artery calcifications which are imaging biomarkers for cardiovascular disease. MICROBIOLOGY: Blood cultures x 2 sets: NG sputum cx: unable to be obtained C diff.: positive Lyme: pending Mycoplasma, legionella, urine strep: pending No debridement cx, GS sent. HSV swab: obtained ASSESSMENT: 55-year-old male with history of AML , recently treated for neutropenic fever on 05/04/2021 and treated for community-acquired pneumonia on Levaquin, presents as a direct admission from the [facility] for neutropenic fever, SIRS without identified infection. PLAN: Neutropenic fever likely 2/2 to c. difficile infection, sepsis -Afebrile since yesterday, since initiation of fidaxomicin. Decreased bowel movements over 24 hours. -WBC 0.7, improving tachycardia, + c. diff (many risk factors including multiple hospitalization, tx with multiple abx over past 1 mo, immunocompromised, etc) -At this time unable to absolutely r/o fungal infection with aspergillosis studies pending, bronchoscopy unable to be done due to low PLTs; however, lower on the differential as cause of fevers at this time. CT chest showed multiple lesions in b/l lungs. CT from 08/2020 (scanned image to our EMR) showed mass and scattered pulmonary lung nodules , concerning for inflammatory/infection at that time as well. D/w pulmonary today who is not completely convinced findings on CT are fungal vs. perhaps PNA vs. atelectasis. Aspergillosis studies in 04/2021 during hospitalization at [facility] neg. F/u studies here and, if still of concern, can schedule bronchoscopy if labs improve later. Has been on voriconazole prophylaxis. -Necrotic coccyx decubitus ulcer unlikely as cause, since patient has been on vancomycin, meropenem and still spiked. General surgery debrided 05/12/21, no cx sent. -Left sinus opacification was seen on CT above. Seen d/c summary from [facility], who also had ENT see there and they did not feel this needed additional treatment/intervention. Updated our ENT who will no longer plan on further treatment/intervention either. -Micro above -Dr. Paz (ID) spoke with Dr. Srivastava (patient's med/onc at [facility]) who agreed with stopping chemotherapy while treating sepsis. -Stopped Zosyn 05/11/21. Stopped meropenem, vancomycin 05/13/21. C/w fidaxomicin. Alternating tylenol and toradol for fevers. -Dr. 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 -Due to get a bone marrow aspiration biopsy on 05/16/2021 at [facility]. He was put on a allogenic transplant list by his medical oncologist at that facility. -Neupogen and venetoclax stopped -C/p 5 PRBC, 5 PLTs. -Goal to keep platelets > 10, hemoglobin >7 -Neutropenic precautions Left sinus opacification -Hx of abnormal mass-like enhancement involving the left maxillary, ethmodi and sphenoid sinus- see d/c summary from [facility] [place] -At this time, likely [facility] [place] ENT also concluded, will not recommend any further intervention. Necrotic coccyx decubitus s/p debridement 05/12/21 -Abx stopped today due to c. diff and ulcer being debridement -Wound care daily. Pulmonary nodules, cannot r/o ? PNA vs. fungal etiology vs. ? atelectasis -See above -Will need to f/u as o/p Elevated T. bili -No abdominal pain -CT abd/pelvis above -Monitor for worsening s/s Hypertension -C/w lisinopril with holding parameters Diabetes -Neutropenic diet consistent carbohydrate sliding scale with coverage with before every meal fingersticks and nightly -Added Adis BID Obstructive sleep apnea, chronic -On RA Depression -stable -C/w home meds DVT prophylaxis -teds, SCD DISPOSITION: C/w tx above. PT/OT. Plan for d/c home when medically improved. VS, I&O, 24H, Fishbone Vital Signs/I&O Vital Signs Date Time Temp Pulse Resp B/P (MAP) Pulse Ox O2 Delivery O2 Flow Rate FiO2 05/13/21 09:54 156/72 05/13/21 08:00 98.1 101 18 Room Air 05/13/21 04:00 92 I&O- Last 24 Hours up to 6 AM 05/13/21 05:59 Intake Total 2376 ml Output Total 2200 ml Balance 176 ml Laboratory Data 24H LABS Laboratory Tests 2 05/12/21 10:18: Immature Granulocyte % (Auto) 0.0, Neutrophils (%) (Auto) 22.0L, Lymphocytes (%) (Auto) 34.1, Monocytes (%) (Auto) 43.9H, Eosinophils (%) (Auto) 0.0, Basophils (%) (Auto) 0.0, Neutrophils # (Auto) 0.2L, Lymphocytes # (Auto) 0.3L, Monocytes # (Auto) 0.4, Eosinophils # (Auto) 0.0, Basophils # (Auto) 0.0, Nucleated Red Blood Cells % (auto) 0.0, Anion Gap 7L, Glomerular Filtration Rate > 60.0, Calcium Level 8.0L, Total Bilirubin 1.1H, Aspartate Amino Transf (AST/SGOT) 16, Alanine Aminotransferase (ALT/SGPT) 15, Alkaline Phosphatase 130H, Total Protein 5.8L, Albumin 2.0L, Albumin/Globulin Ratio 0.5 05/12/21 10:54: Clostridium difficile [id number] PRESUMPTIVE NEGATIVE, Clostridium difficile Toxin (PCR) POSITIVEA 05/12/21 12:21: Bedside Glucose (Misc Panel) 136H 05/12/21 20:48: Bedside Glucose (Misc Panel) 182H 05/13/21 02:54: Immature Granulocyte % (Auto) 0.0, Neutrophils (%) (Auto) 28.4L, Lymphocytes (%) (Auto) 27.0, Monocytes (%) (Auto) 43.2H, Eosinophils (%) (Auto) 0.0, Basophils (%) (Auto) 1.4H, Neutrophils # (Auto) 0.2L, Lymphocytes # (Auto) 0.2L, Monocytes # (Auto) 0.3, Eosinophils # (Auto) 0.0, Basophils # (Auto) 0.0, Nucleated Red Blood Cells % (auto) 0.0, Immature Platelet Fraction 1.0, Anion Gap 6L, Glomerular Filtration Rate > 60.0, Calcium Level 7.9L, Total Bilirubin 2.1#H, Aspartate Amino Transf (AST/SGOT) 14, Alanine Aminotransferase (ALT/SGPT) 13, Alkaline Phosphatase 122H, Total Protein 5.5L, Albumin 1.8L, Albumin/Globulin Ratio 0.5, Vancomycin Level Trough 15.2 CBC/BMP Laboratory Tests 05/12/21 10:18 05/13/21 02:54 Microbiology Microbiology 05/10/21 Respiratory Virus Panel (PCR) ([facility]) - Final, Complete 05/10/21 Blood Culture - Preliminary, Resulted No Growth after 48 hours. All Specime... 05/10/21 Blood Culture - Preliminary, Resulted No Growth after 48 hours. All Specime... Janeen Latif MD May 13, 2021 10:48
--- NOTE | 2021-05-13 11:25 | IPNPDOC ---
Text Note Date of Service The patient was seen on 05/13/21. NOTE PULMONOLOGY PROGRESS NOTE: SUBJECTIVE: Patient seen and examined at bedside. There were no overnight events. Patient is afebrile last 24 hours. Currently he is 97% on room air and he is without any respiratory complaints. He is still having diarrhea. He was transfused m ultiple units of platelet however his platelet counts are still less than 30,000. All other ROS are negative except as mentioned above PHYSICAL EXAMINATION: VITAL SIGNS: Please see below. GENERAL APPEARANCE: Alert and awake. Morbidly obese HEENT: no thyromegaly, trachea midline, PERRLA. normal mucous membranes RESPIRATORY: CTA B/L, good air entry. CARDIOVASCULAR: +s1 s2, no murmurs. ABDOMEN: nontender, not distended, +BS EXTREMITIES: Pitting edema bilateral ,palpable distal pulses SKIN: no rash, no purpura NEUROLOGICAL: no sensory or motor deficits, orientedx3. PERTINENT LABS/IMAGING: No chest x-ray today ASSESSMENT: 55-year-old male with a significant past medical history for AML status post chemotherapy last cycle was 1 month ago, morbid obesity, JIMBO on CPAP 15 cm of water who is admitted for neutropenic fever and diarrhea. His work-up revealed the presence of bilateral lung nodules and a left lower lobe consolidation versus atelectasis. 1. Bilateral nodular densities with a left lower lobe consolidation plus or minus atelectasis in a patient with neutropenia from AML and having fevers. The differential includes opportunistic infection such as fungal, however neoplasm cannot be excluded. 2. History of AML currently on chemotherapy 3. Pancytopenia 4. History of JIMBO compliant with PAP therapy at home 5. History of chronic diarrhea with C. difficile in the past and currently he has a positive C. difficile PCR and is being treated with fidaxomicin PLAN: * At this time the benefit of bronchoscopy does not outweigh the risks of bleeding and respiratory failure given his morbid obesity and JIMBO. Will hold off on bronchoscopy today and can reschedule on a later date. Patient will need to have a platelet count of at least 30,000 in order to safely have the bronchoscopy with BAL performed. * The patient is asymptomatic from a pulmonary standpoint and he has 98% on room air. * Continue with CPAP 15 cmh2o every night. * Please recall pulmonary once patient's platelet count are improved Thank you for the courtesy of this consult. Please text me on Vocera for any questions or concerns. Bret Holt MD Pulmonary/Critical Care VS,Amrita, I+O VSAmrita I+O Laboratory Tests 05/13/21 02:54 Vital Signs Date Time Temp Pulse Resp B/P (MAP) Pulse Ox O2 Delivery O2 Flow Rate FiO2 05/13/21 09:54 156/72 05/13/21 08:00 98.1 101 18 Room Air 05/13/21 04:00 92 I&O- Last 24 Hours up to 6 AM 05/13/21 06:00 Intake Total 2376 ml Output Total 2200 ml Balance 176 ml BRET HOLT MD May 13, 2021 11:25
[2021-05-13 14:09] LABS: Lyme Disease IgG Ab 18 kDa Ban Absent (.); Lyme Disease IgG Ab 23 kDa Ban Absent (.); Lyme Disease IgG Ab 28 kDa Ban Absent (.); Lyme Disease IgG Ab 30 kDa Ban Absent (.); Lyme Disease IgG Ab 39 kDa Ban Present (.); Lyme Disease IgG Ab 41 kDa Ban Absent (.); Lyme Disease IgG Ab 45 kDa Ban Absent (.); Lyme Disease IgG Ab 58 kDa Ban Absent (.); Lyme Disease IgG Ab 66 kDa Ban Absent (.); Lyme Disease IgG Ab 93 kDa Ban Absent (.); Lyme Disease IgG West Blot Int Negative (.); Lyme Disease IgG/IgM Antibodie 0.96 ISR (0.00-0.90); Lyme Disease IgM Ab 23 kDa Ban Absent (.); Lyme Disease IgM Ab 39 kDa Ban Absent (.); Lyme Disease IgM Ab 41 kDa Ban Absent (.); Lyme Disease IgM Ab Quantitati <0.80 index (0.00-0.79); Lyme Disease IgM West Blot Int Negative (.)
--- NOTE | 2021-05-13 14:36 | IPN ---
PROGRESS NOTE DATE: 05/13/2021 SUBJECTIVE: Patient was seen in the hospital with a history of unexplained fever. Patient has acute myelogenous leukemia. He has a fever and there has been no findings on search for a cause for the fever. The patient did have a CT scan of the sinuses which showed swelling in the left maxillary sinus. Patient has no nasal obstruction or nasal discharge. He has no postnasal drip. He has no facial pain or pressure. OBJECTIVE: Examination shows no abnormalities to his nose or face. Patient has unexplained fever. There is mucosal thickening in the left maxillary sinus and a bit in the left sphenoid. I do not think this is the cause for his fever. If he is going to the Operating Room to have bronchoscopy, I could do an aspiration of the contents of the left maxillary sinus. IMPRESSION: Chronic maxillary sinusitis which is not the cause of his fever.
[2021-05-13] MEDS: ACETAMINOPHEN TAB 650MG DOSE (2X325MG) PO PRN (17:11)
[2021-05-13] MEDS: HumaLOG INSULIN (NovoLOG) PER UNIT SC SCH (20:16)
[2021-05-13] MEDS ORDERED: CETIRIZINE (ZyrTEC) 10 MG TAB PO ONE (22:45)
[2021-05-14] VITALS (7 sets, daily range): BP systolic 131–200; BP diastolic 61–96
[2021-05-14] MEDS ORDERED: LABETALOL 100MG/20ML VIAL IV ONE ×2 (00:45→04:50)
[2021-05-14] MEDS: ACETAMINOPHEN TAB 650MG DOSE (2X325MG) PO PRN ×3 (01:31→22:18)
[2021-05-14] MEDS ORDERED: hydrALAZINE 20MG/ML 1ML VIAL (J0360 PER 20MG) IV ONE ×2 (02:35→06:00)
[2021-05-14 04:09] LABS: BASO % 1.6 % (0.0-1.0); HEMATOCRIT 26.6 % (42.0-52.0); HEMOGLOBIN 8.9 g/dl (13.5-17.5); LYMPH # 0.2 10^3/uL (1.5-5.0); LYMPH % 30.2 % (24.0-44.0); MEAN CORPUSCULAR HEMOGLOBIN 28.8 pg (27.0-33.0); MEAN CORPUSCULAR HGB CONC 33.5 g/dl (32.0-36.5); MEAN CORPUSCULAR VOLUME 86.1 fl (80.0-96.0); MONO # 0.2 10^3/uL (0.0-0.8); MONO % 30.2 % (2.0-8.0); RED BLOOD COUNT 3.09 10^6/uL (4.30-6.10)
[2021-05-14 04:54] LABS: NEUTROPHILS # 0.2 10^3/uL (1.5-8.5); PLATELET COUNT, AUTOMATED 13 10^3/uL (150-450); WHITE BLOOD COUNT 0.6 10^3/uL (4.0-10.0)
[2021-05-14 04:57] LABS: ALBUMIN 1.8 GM/DL (3.2-5.2); ALT/SGPT 13 U/L (12-78); BILIRUBIN,TOTAL 0.9 MG/DL (0.2-1.0); BLOOD UREA NITROGEN 14 MG/DL (7-18); CALCIUM LEVEL 8.1 MG/DL (8.5-10.1); CARBON DIOXIDE LEVEL 22 MEQ/L (21-32); CHLORIDE LEVEL 107 MEQ/L (98-107); CREATININE FOR GFR 0.61 MG/DL (0.70-1.30); GLOMERULAR FILTRATION RATE > 60.0 (>56); GLUCOSE, FASTING 209 MG/DL (70-100); POTASSIUM SERUM 3.5 MEQ/L (3.5-5.1); SODIUM LEVEL 137 MEQ/L (136-145); TOTAL PROTEIN 5.7 GM/DL (6.4-8.2)
[2021-05-14] MEDS: FLUoxetine 20 MG CAP PO SCH (08:44)
[2021-05-14] MEDS: LACTOBACILLUS ACIDOPHILUS CAP (BACID) PO SCH ×2 (08:44→18:23)
[2021-05-14] MEDS: FIDAXOMICIN 200 MG TAB (DIFICID) PO SCH ×2 (08:45→21:51)
[2021-05-14] MEDS: allopurinoL 300 MG TAB PO SCH (08:45)
[2021-05-14] MEDS: VORICONAZOLE 200MG TABLET (VFEND) PO SCH ×2 (08:45→21:50)
[2021-05-14] MEDS: ACYCLOVIR 200 MG CAPSULE PO SCH ×2 (08:45→21:51)
[2021-05-14] MEDS: CETIRIZINE (ZyrTEC) 10 MG TAB PO PRN (09:22)
[2021-05-14] MEDS: busPIRone 10 MG TAB PO SCH ×4 (09:22→21:51)
--- NOTE | 2021-05-14 09:36 | IPN ---
PROGRESS NOTE DATE: 05/13/2021 SUBJECTIVE: Mr. Francis seems to be doing better today. He has a good appetite. He is eating his hamburger at dinnertime and was in a good mood. He states he was having recurrent fever tonight with temperature up to 100.6 although much lower than yesterday. His diarrhea has somewhat improved. He had two bowel movements that are a little more formed. He had received multiple units of platelets but with only improvement to 30,000 and therefore there was a concern about doing a bronchoscopy. I had a long discussion with Dr. Cox, his statistical consultant from [place] who was also weary about doing a bronchoscopy and a nasal aspirate because of his risk of bleeding. He recommended we discontinue his chemotherapy and wait for his platelets to improve before doing any invasive procedures. OBJECTIVE: GENERAL APPEARANCE: He looks well sitting at the bedside eating his dinner with a good appetite. VITAL SIGNS: Temperature is 100.6, pulse is 101, respirations 16, blood pressure is 165/78, O2 sat is 97% on room air. HEART: Normal S1 and S2, tachycardic. No murmurs appreciated. LUNGS: Clear. No wheezes, rales or rhonchi. Good air entry. ABDOMEN: Obese, soft, nontender. EXTREMITIES: Pitting edema bilaterally, +1. Good pulses. SKIN: Multiple nodules felt all over his body that are hard and indurated and with redness and hematomas. These nodules are anywhere from 1 to 2 cm. He has a couple on his back and abdomen. There is a concern for chloroma. There is a new lesion on his right arm which is erythematous, nodular and has a necrotic eschar. NEUROLOGIC: Normal, alert and oriented x3. No neck stiffness, no sinus tenderness. LABORATORY DATA: White count is 0.7, hemoglobin is 7.6, hematocrit 22.4, platelets 26, 28% neutrophils, 27% lymphocytes, 43% monocytes. Sodium is 138, potassium is 3.9, chloride is 108, bicarbonate 24, BUN is 16, creatinine is 0.58. Glucose is 173, calcium is 7.9. Bilirubin is 2.1 which has increased from yesterday of 1.1, AST 14, ALT 13, alkaline phosphatase 122, total protein 5.5, albumin 1.8. Lyme serology was negative. C. Diff was positive. Aspergillus Galactomannan is pending. Beta 1, 3 glucan is not detected. Blood cultures: Two sets are no growth. Respiratory panel is negative. Fungal smear culture from the buttock is pending. IMPRESSION: 1. Febrile neutropenia in a patient with AML, chemotherapy has been discontinued today. Patient is on chronic suppressive therapy with Voriconazole for fungal infection, Acyclovir for herpes. 2. C. Difficile colitis, patient is currently on Dificid 200 mg p.o. b.i.d., day #2, started on 05/12. 3. Persistent left sided sinusitis including maxillary, sphenoid and ethmoid sinuses. He was seen by ENT, Dr. Briceno, who did not feel that was the source of the fever but if the patient was to be taken to the OR for a bronchoscopy he was willing to do an aspiration of the left sinuses to rule out bacterial versus fungal pathogen. The patient states that he does not have symptoms of allergies but only postnasal drip. Most of the sputum he brings up which he states is from his postnasal drip is clear phlegm. PLAN: Continue Fidaxomicin 200 mg p.o. b.i.d. for C. Diff. Continue Acyclovir for herpes prophylaxis. Obtain HSV from his buttock area to rule out HSV and genital ulceration. Continue Voriconazole for Aspergillus prophylaxis and fungal infection. Will discontinued Meropenem and Vancomycin at this time as he had been treated with broad-spectrum antibiotic on his previous hospitalization at [place] for two weeks and his pneumonia does not seem to have worsened. Patient is not hypoxic and has no cough. Especially in the setting of C. Difficile I would avoid any broad-spectrum antibiotic if it is not necessary. If platelets improve, the patient would benefit from bronchoscopy and sinus aspirate.
--- NOTE | 2021-05-14 13:14 | IPNPDOC ---
Date Seen The patient was seen on 05/14/21. Progress Note SUBJECTIVE: Spiked fevers again, Tmax 103.2 at 12 AM. HR 105 sinus. Had a meeting with both infectious disease and pulmonary in regards to the patient continuing to spike fevers after being afebrile for most the day yesterday. He was only recently taken off of the chemotherapy so his platelets are still low, almost half of what they were the day before. The patient has no acute complaints. He denies SOB, chest pain, n/v/d. OBJECTIVE: PHYSICAL EXAMINATION: VITAL SIGNS: See below GENERAL APPEARANCE: NAD, resting in bed. AAOx 3 HEENT: No JVD thyromegaly or cervical lymphadenopathy, no upper teeth CARDIOVASCULAR: S1-S2 regular rate rhythm LUNGS: No wheezing rales or rhonchi clear to auscultation, CTAB ABDOMEN: Obese, soft, nontender, nondistended positive bowel sounds x4 quadrants, No rebound or guarding INTEGUMENTARY: 4 cmx 1.5 cm coccyx decubitus appears cleaned out and packed, +f oul smelling. Another very small 1 cm. x0.75 cm Stage I ulcer below coccyx ulcer. EXTREMITIES: Right forearm peripheral IV multiple bruises bilateral upper and lower extremities Neuro: CN 2-12 intact, no focal deficits LABORATORY DATA: See below. IMAGING: CT chest 05/10/21: Multiple lesions in bilateral lungs. The largest measures in the right upper lobe measuring 1.1 cm. Findings suspicious for neoplastic lesion. Tissue diagnosis is suggested. CT chest 08/2020 (scanned image in our EMR): Approximately 6 m consolidative mass in the left lower lobe with surrounding groundglass attenuation as well as multiple bilateral small scattered pulmonary nodules in the peripheral and lower lung predominant distribution. 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 Aspergillosis is a differential consideration. Although dictating lesions are identified, a less likely differential consideration would BE septic pulmonary emboli with a left lower lobe infarct. Nonspecific 1.5 x 1.0 cm soft tissue nodule in the anterior right chest wall superior to the patient's right nipple. Correlation with physical exam is recommended. Coronary artery calcifications which are imaging biomarkers for cardiovascular disease. MICROBIOLOGY: Blood cultures x 2 sets: NG sputum cx: unable to be obtained C diff.: positive Lyme: pending Mycoplasma, legionella, urine strep: pending No debridement cx, GS sent. 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 PLAN: Neutropenic fever likely 2/2 to c. difficile infection vs. other infection (see paragraph below), sepsis -Chito 103 degree fever overnight after being afebrile most of the 24 hours prior. Increased BM per patient -WBC 0.6, remains tachycardic, + c. diff (many risk factors including multiple hospitalization, tx with multiple abx over past 1 mo, immunocompromised, etc) -At this time unable to absolutely r/o fungal infection (i.e. aspergillosis, nocardia, mucor, etc) with aspergillosis studies pending, bronchoscopy unable to be done due to low PLTs. CT chest showed multiple lesions in b/l lungs. CT from 08/2020 (scanned image to our EMR) showed mass and scattered pulmonary lung nodules , concerning for inflammatory/infection at that time as well. Discussed again with Dr. Zuniga pulmonary today who agrees bronchoscopy is risky given hematological issues he is having, particularly with his PLTs not being able to stay elevated despite getting multiple transfusions daily. Aspergillosis studies in 04/2021 during hospitalization at [facility] neg. F/u studies here. Discussed the case with Dr. Herron blood bank physician who suggested PLTs being transfused DURING the procedure because she says that by the time the platelets are transfused and post-tranfusion CBC can be checked prior to procedure, the PLT levels have already dropped again. Risk would be doing the procedure without knowing the true PLT count. There is also a risk given that he needs irradiated PLTs which are harder to obtain (need to go through [place] blood bank). Extras likely wouldn't be readily available if there was an emergency bleed and would likely require some time to obtain. If his PLTs can increase over the weekend (since we have stopped the chemotherapy 05/13/21) perhaps we will see the PLTs climb higher on their own. This will likely be discussed after weekend with his med/onc Dr. Srivastava. Has been on voriconazole prop hylaxis. -Necrotic coccyx decubitus ulcer unlikely as cause, since patient has been on vancomycin, meropenem and still spiked. General surgery debrided 05/12/21, no cx sent. Fungal swab, HSV swabs pending -Left sinus opacification was seen on CT above. Seen d/c summary from [facility], who also had ENT see there and they did not feel this needed additional treatment/intervention. Updated our ENT who will no longer plan on further treatment/intervention. If he goes for bronchoscopy in future, perhaps we would want to re-involve this service to discuss. -Micro above -Dr. Paz (ID) spoke with Dr. Srivastava (patient's med/onc at [facility]) who agreed with stopping chemotherapy while treating sepsis. Stopped 05/13/21 -Stopped Zosyn 05/11/21. Stopped meropenem, vancomycin 05/13/21. C/w fidaxomicin. Alternating tylenol and toradol for fevers. -Dr. 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 -No s/s of bleeding -Holding off on additional blood product today as bronchoscopy is cancelled -Due to get a bone marrow aspiration biopsy on 05/16/2021 at [facility]. He was put on a allogenic transplant list by his medical oncologist at that facility. -Neupogen stopped. venetoclax stopped (05/13/21) and hoping to see some improvement in blood numbers while off chemo. -S/p 7 PRBC, 5 PLTs to date. -Goal to keep platelets > 10, hemoglobin >7 -Neutropenic precautions Left sinus opacification -Hx of abnormal mass-like enhancement involving the left maxillary, ethmodi and sphenoid sinus- see d/c summary from [facility] -At this time, likely [facility] ENT also concluded, will not recommend any further intervention. Necrotic coccyx decubitus s/p debridement 05/12/21 -Abx stopped today due to c. diff and ulcer being debridement -Wound care daily. Pulmonary nodules, cannot r/o ? PNA vs. fungal etiology vs. ? atelectasis -See above Hypertension -Uncontrolled overnight with systolic BP 190's, denies uncontrolled pain, palpitations -S/p IV hydralazine and labetalol overnight -Today systolic 140's -C/w lisinopril with holding parameters Elevated T. bili - resolved -No abdominal pain, now wnl -CT abd/pelvis above -Monitor for worsening s/s Diabetes -Neutropenic diet consistent carbohydrate sliding scale with coverage with before every meal fingersticks and nightly -Added Adis BID Obstructive sleep apnea, chronic -On RA Depression -stable -C/w home meds DVT prophylaxis -teds, SCD DISPOSITION: C/w tx above. Plan for d/c home when medically improved. VS, I&O, 24H, Fishbone Vital Signs/I&O Vital Signs Date Time Temp Pulse Resp B/P (MAP) Pulse Ox O2 Delivery O2 Flow Rate FiO2 05/14/21 08:45 140/67 05/14/21 07:44 97.7 97 18 97 Room Air I&O- Last 24 Hours up to 6 AM 05/14/21 06:00 Intake Total 2365 ml Output Total 1125 ml Balance 1240 ml Laboratory Data 24H LABS Laboratory Tests 2 05/13/21 14:39: Methicillin-Resist S.aureus DNA PCR NOT DETECTED 05/13/21 20:15: Bedside Glucose (Misc Panel) 248H 05/14/21 03:22: Immature Granulocyte % (Auto) 0.0, Neutrophils (%) (Auto) 38.0, Lymphocytes (%) (Auto) 30.2, Monocytes (%) (Auto) 30.2H, Eosinophils (%) (Auto) 0.0, Basophils (%) (Auto) 1.6H, Neutrophils # (Auto) 0.2L, Lymphocytes # (Auto) 0.2L, Monocytes # (Auto) 0.2, Eosinophils # (Auto) 0.0, Basophils # (Auto) 0.0, Nucleated Red Blood Cells % (auto) 0.0, Immature Platelet Fraction 1.1, Anion Gap 8, Glomerul ar Filtration Rate > 60.0, Calcium Level 8.1L, Total Bilirubin 0.9#, Aspartate Amino Transf (AST/SGOT) 11, Alanine Aminotransferase (ALT/SGPT) 13, Alkaline Phosphatase 131H, Total Protein 5.7L, Albumin 1.8L, Albumin/Globulin Ratio 0.5 05/14/21 12:03: Bedside Glucose (Misc Panel) 189H CBC/BMP Laboratory Tests 05/14/21 03:22 Microbiology Microbiology 05/13/21 Fungal Smear, Received Pending 05/13/21 Fungal Culture, Received Pending 05/13/21 Herpes Simplex Virus I (PCR), Received Pending 05/13/21 Herpes Simplex Virus II (PCR), Received Pending 05/10/21 Respiratory Virus Panel (PCR) ([facility]) - Final, Complete 05/10/21 Blood Culture - Preliminary, Resulted No Growth after 72 hours. All specime... 05/10/21 Blood Culture - Preliminary, Resulted No Growth after 72 hours. All specime... Janeen Latif MD May 14, 2021 13:14
--- NOTE | 2021-05-14 18:16 | IPNPDOC ---
Subjective Date Seen The patient was seen on 05/14/21. Subjective Chief Complaint/HPI SUBJECTIVE: Patient reports having fevers again with Tmax 103. States that he's having loose stools still. He has good appetite. Still complains of post nasal drip and voluminous production of foamy white secretions that he's spitting out. Overnight, he had a spike in bp with SBP 190s and received labetolol and hydralazine. Currently his SBP is in the 130s. Patient denies any chest pain, nausea, vomiting, abdominal pain, shaking chills. OBJECTIVE: VS: SEE BELOW GENERAL APPEARANCE: Laying in bed without any acute distress. seems to be in good spirit pressure is 165/78, O2 sat is 97% on room air. NEUROLOGIC: Normal, alert and oriented x3. No neck stiffness, no sinus tenderness. HEART: Normal S1 and S2, tachycardic. No murmurs appreciated. Trace pedal edema LUNGS: Clear. No wheezes, rales or rhonchi. Good air entry. ABDOMEN: Obese, soft, nontender, nondistended. Difficult to appreciate organomegaly due to body habitus SKIN/EXTR: Multiple nodules felt all over his body that are hard and indurated and with redness and hematomas. These nodules are anywhere from 1 to 2 cm. He has a couple on his back and abdomen. There is a concern for chloroma. There is a new lesion on his right arm which is erythematous, nodular and has a necrotic eschar which was marked and has not increased in size and looks like it's healing up. Good pedal pulses bilat. MICROBIOLOGY: Lyme serology was negative. C. Diff was positive. Aspergillus Galactomannan is pending. Beta 1, 3 glucan is not detected. Blood cultures: Two sets are no growth. Respiratory panel is negative. Fungal and HSV smear culture from the buttock is pending. IMPRESSION AND PLAN: Febrile neutropenia. Relapse of AML in March. Chemotherapy has been discontinued since yesterday. Patient is on chronic suppressive therapy with Voriconazole for fungal infection, Acyclovir for herpes. Continue Voriconazole for Aspergillus prophylaxis and fungal infection. Continue Acyclovir for herpes prophylaxis and currently pending HSV PCR from his buttock area to rule out HSV and genital ulceration. He had a bone marrow bx scheduled at [place] next week; however, Dr. Lu (heme/onc) has agreed to do sometime next week given his plt count. Got in touch with Dr. Mckeon (ID from [facility]) who states that he tested him for Fungitell x2 which were neg. Also less likely that this is aspergillus infection; however, he does agree that patient will need a bronch at some point if plt can be within a safe range for such procedures. Pulmonary (Dr. Zuniga) has graciously agreed to perform a bronch if plt >30,000. Given his medical complexity, patient may need to get transferred to another facility for further management of care, even though patient is adamant about staying at [facility] and not wanting to travel. C. Difficile colitis. C/w with Dificid 200 mg p.o. b.i.d., day #3, started on 05/12. Persistent left sided sinusitis including maxillary, sphenoid and ethmoid sinuses. Will benefit from a sinus aspirate to find source and r/o mucor. He was seen by ENT, Dr. Briceno, who did not feel that was the source of the fever but if the patient was to be taken to the OR for a bronchoscopy he was willing to do an aspiration of the left sinuses to rule out bacterial versus fungal pathogen. The patient states that he does not have symptoms of allergies but only postnasal drip. Most of the sputum he brings up which he states is from his postnasal drip is clear phlegm. Questionable PNA. Patient is not hypoxic and has no cough. Patient is s/p 2 weeks of vanco and zosyn at [facility] and Have D/Cd vanco and merrem yesterday and avoid broad spec abx. Assessment /Plan Plan/VTE VTE Prophylaxis Ordered?: No VS, I&O, 24H, Fishbone Vital Signs/I&O Vital Signs Date Time Temp Pulse Resp B/P (MAP) Pulse Ox O2 Delivery O2 Flow Rate FiO2 05/14/21 13:15 103.2 109 18 131/61 (84) 96 Room Air I&O- Last 24 Hours up to 6 AM 05/14/21 06:00 Intake Total 2365 ml Output Total 1125 ml Balance 1240 ml Laboratory Data 24H LABS Laboratory Tests 2 05/13/21 20:15: Bedside Glucose (Misc Panel) 248H 05/14/21 03:22: Immature Granulocyte % (Auto) 0.0, Neutrophils (%) (Auto) 38.0, Lymphocytes (%) (Auto) 30.2, Monocytes (%) (Auto) 30.2H, Eosinophils (%) (Auto) 0.0, Basophils (%) (Auto) 1.6H, Neutrophils # (Auto) 0.2L, Lymphocytes # (Auto) 0.2L, Monocytes # (Auto) 0.2, Eosinophils # (Auto) 0.0, Basophils # (Auto) 0.0, Nucleated Red Blood Cells % (auto) 0.0, Immature Platelet Fraction 1.1, Anion Gap 8, Glomerular Filtration Rate > 60.0, Calcium Level 8.1L, Total Bilirubin 0.9#, Aspartate Amino Transf (AST/SGOT) 11, Alanine Aminotransferase (ALT/SGPT) 13, Alkaline Phosphatase 131H, Total Protein 5.7L, Albumin 1.8L, Albumin/Globulin Ratio 0.5 05/14/21 12:03: Bedside Glucose (Misc Panel) 189H 05/14/21 16:53: Uric Acid 1.7L CBC/BMP Laboratory Tests 05/14/21 03:22 Microbiology Microbiology 05/14/21 Blood Culture, Received Pending 05/13/21 Fungal Smear, Received Pending 05/13/21 Fungal Culture, Received Pending 05/13/21 Herpes Simplex Virus I (PCR), Received Pending 05/13/21 Herpes Simplex Virus II (PCR), Received Pending 05/10/21 Respiratory Virus Panel (PCR) ([facility]) - Final, Complete 05/10/21 Blood Culture - Preliminary, Resulted No Growth after 72 hours. All specime... 05/10/21 Blood Culture - Preliminary, Resulted No Growth after 72 hours. All specime... Jose Manuel Russell DO May 14, 2021 18:16
[2021-05-14] MEDS: HumaLOG INSULIN (NovoLOG) PER UNIT SC SCH (21:00)
[2021-05-15] VITALS (13 sets, daily range): BP systolic 135–163; BP diastolic 66–80
[2021-05-15] MEDS: ACETAMINOPHEN TAB 650MG DOSE (2X325MG) PO PRN ×3 (03:54→18:08)
[2021-05-15 05:33] LABS: HEMATOCRIT 24.6 % (42.0-52.0); HEMOGLOBIN 8.4 g/dl (13.5-17.5); LYMPH # 0.1 10^3/uL (1.5-5.0); LYMPH % 22.4 % (24.0-44.0); MEAN CORPUSCULAR HEMOGLOBIN 29.7 pg (27.0-33.0); MEAN CORPUSCULAR HGB CONC 34.1 g/dl (32.0-36.5); MEAN CORPUSCULAR VOLUME 86.9 fl (80.0-96.0); MONO # 0.3 10^3/uL (0.0-0.8); MONO % 53.1 % (2.0-8.0); NEUTROPHILS % 24.5 % (36.0-66.0); RED BLOOD COUNT 2.83 10^6/uL (4.30-6.10)
[2021-05-15 05:43] LABS: NEUTROPHILS # 0.1 10^3/uL (1.5-8.5); PLATELET COUNT, AUTOMATED 6 10^3/uL (150-450); WHITE BLOOD COUNT 0.5 10^3/uL (4.0-10.0)
[2021-05-15 05:54] LABS: ALBUMIN 1.7 GM/DL (3.2-5.2); ALT/SGPT 11 U/L (12-78); BLOOD UREA NITROGEN 11 MG/DL (7-18); CALCIUM LEVEL 7.7 MG/DL (8.5-10.1); CARBON DIOXIDE LEVEL 24 MEQ/L (21-32); CHLORIDE LEVEL 105 MEQ/L (98-107); CREATININE FOR GFR 0.51 MG/DL (0.70-1.30); GLOMERULAR FILTRATION RATE > 60.0 (>56); GLUCOSE, FASTING 182 MG/DL (70-100); POTASSIUM SERUM 3.6 MEQ/L (3.5-5.1); SODIUM LEVEL 136 MEQ/L (136-145); TOTAL PROTEIN 4.8 GM/DL (6.4-8.2)
[2021-05-15] MEDS: FLUoxetine 20 MG CAP PO SCH (09:01)
[2021-05-15] MEDS: VORICONAZOLE 200MG TABLET (VFEND) PO SCH ×2 (09:01→20:35)
[2021-05-15] MEDS: LACTOBACILLUS ACIDOPHILUS CAP (BACID) PO SCH ×2 (09:01→18:07)
[2021-05-15] MEDS: ACYCLOVIR 200 MG CAPSULE PO SCH ×2 (09:01→20:34)
[2021-05-15] MEDS: FIDAXOMICIN 200 MG TAB (DIFICID) PO SCH ×2 (09:01→20:34)
[2021-05-15] MEDS: busPIRone 10 MG TAB PO SCH ×4 (09:02→20:34)
[2021-05-15] MEDS: CETIRIZINE (ZyrTEC) 10 MG TAB PO PRN (13:52)
--- NOTE | 2021-05-15 14:45 | IPNPDOC ---
Date Seen The patient was seen on 05/15/21. Progress Note SUBJECTIVE: 102.2 fever this morning, order 2 platelets to be transfused for platelet of 6. No signs or symptoms of bleeding. Discussed with infectious disease and pulmonary our plan of treatment going forward. She had consulted with both his med/onc provider and prior infectious disease doctor at [facility], [place], [place]. Recommendations were to try to transfer him there if possible. I called [facility] today and he is currently accepted but awaiting a bed. No acute complaints overnight but remains having multiple bowel movements during the day, 7 total 05/14/2021. He denies SOB, chest pain, n/v/d. OBJECTIVE: PHYSICAL EXAMINATION: VITAL SIGNS: See below GENERAL APPEARANCE: NAD, resting in bed. AAOx 3 HEENT: No JVD thyromegaly or cervical lymphadenopathy, no upper teeth CARDIOVASCULAR: S1-S2 regular rate rhythm LUNGS: No wheezing rales or rhonchi clear to auscultation, CTAB ABDOMEN: Obese, soft, nontender, nondistended positive bowel sounds x4 quadrants, No rebound or guarding INTEGUMENTARY: 4 cmx 1.5 cm coccyx decubitus appears cleaned out and packed, small 1 cm. x0.75 cm Stage I ulcer below coccyx ulcer. EXTREMITIES: Right forearm peripheral IV multiple bruises bilateral upper and lower extremities Neuro: CN 2-12 intact, no focal deficits LABORATORY DATA: See below. IMAGING: CT chest 05/10/21: Multiple lesions in bilateral lungs. The largest measures in the right upper lobe measuring 1.1 cm. Findings suspicious for neoplastic lesion. Tissue diagnosis is suggested. CT chest 08/2020 (scanned image in our EMR): Approximately 6 m consolidative mass in the left lower lobe with surrounding groundglass attenuation as well as multiple bilateral small scattered pulmonary nodules in the peripheral and lower lung predominant distribution. 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 Aspergillosis is a differential consideration. Although dictating lesions are identified, a less likely differential consideration would BE septic pulmonary emboli with a left lower lobe infarct. Nonspecific 1.5 x 1.0 cm soft tissue nodule in the anterior right chest wall superior to the patient's right nipple. Correlation with physical exam is recommended. Coronary artery calcifications which are imaging biomarkers for cardiovascular disease. MICROBIOLOGY: Blood cultures x 2 sets: NG sputum cx: unable to be obtained C diff.: positive Lyme: pending Mycoplasma, legionella, urine strep: pending No debridement cx, GS sent. HSV swab: obtained ASSESSMENT: 55-year-old male with history of AML , recently treated for neutropenic fever on 05/04/2021 and treated for community-acquired pneumonia on Levaquin, presents as a direct admission from the [facility] for neutropenic fever, SIRS without identified infection. PLAN: Neutropenic fever likely / to c. difficile infection vs. other infection (see paragraph below), sepsis -Fever 102. 2, 7 bowel movements 05/14/2021, recorded for bowel movements today alone. -WBC 0.6, remains tachycardic, + c. diff (many risk factors including multiple hospitalization, tx with multiple abx over past 1 mo, immunocompromised, etc) -At this time unable to absolutely r/o fungal infection (i.e. aspergillosis, nocardia, mucor, etc) with aspergillosis studies pending, bronchoscopy unable to be done due to low PLTs. CT chest showed multiple lesions in b/l lungs. CT from 08/2020 (scanned image to our EMR) showed mass and scattered pulmonary lung nod ules , concerning for inflammatory/infection at that time as well. Discussed again with Dr. Zuniga pulmonary today who agrees bronchoscopy is risky given hematological issues he is having, particularly with his PLTs not being able to stay elevated despite getting multiple transfusions daily. Aspergillosis studies in 04/2021 during hospitalization at [facility] neg. F/u studies here. Discussed the case with Dr. Herron blood bank physician who suggested PLTs being transfused DURING the procedure because she says that by the time the platelets are transfused and post-tranfusion CBC can be checked prior to procedure, the PLT levels have already dropped again. Risk would be doing the procedure without knowing the true PLT count. There is also a risk given that he needs irradiated PLTs which are harder to obtain (need to go through [facility] blood [facility]). Extras likely wouldn't be readily available if there was an emergency bleed and would likely require some time to obtain. Initially we were to wait and see if his PLTs can increase over the weekend (since we have stopped the chemotherapy 05/13/21) perhaps we will see the PLTs climb higher on their own. Upon discussion with Dr. Zuinga and Dr. Paz 05/14/21, bronchoscopy will be needing to be done because he continues to spike fevers despite appropriate tx of infections identified. We currently do not have many antifungal medications here which might be needed and the risk to do a bronchoscopy here is too great considering we don't have readily available blood product in the event that he might bleed with bronchoscopy. -Necrotic coccyx decubitus ulcer unlikely as cause, since patient has been on vancomycin, meropenem and still spiked. General surgery debrided 05/12/21, no cx sent. Fungal swab, HSV swabs pending -Left sinus opacification was seen on CT above. Seen d/c summary from [facility], who also had ENT see there and they did not feel this needed additional treatment/intervention. Updated our ENT who will no longer plan on further treatment/intervention. If he goes for bronchoscopy in future, perhaps we would want to re-involve this service to discuss. -Micro above -Dr. Paz (ID) spoke with Dr. Srivastava (patient's med/onc at [facility]) who agreed with stopping chemotherapy while treating sepsis. Stopped 05/13/21 -Stopped Zosyn 05/11/21. Stopped meropenem, vancomycin 05/13/21. C/w fidaxomicin. Alternating tylenol and toradol for fevers. -Dr. Paz spoke with Dr. Vitaliy Mckeon, Infectious disease in [place], [place] who has treated him before. He [facility] quicker availability to the blood products needed and can be seen by the multiple services he requires. -Dr. 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 He was put on a allogenic transplant list by his medical oncologist at that facility. -Neupogen stopped. venetoclax stopped (05/13/21) and hoping to see some improvement in blood numbers while off chemo. -S/p 7 PRBC, 5 PLTs to date. -Goal to keep platelets > 10, hemoglobin >7 -Ordering additional 2 PLTs today, f/u CBC in AM -Neutropenic precautions Left sinus opacification -Hx of abnormal mass-like enhancement involving the left maxillary, ethmodi and sphenoid sinus- see d/c summary from [facility] -At this time, likely [facility] ENT also concluded, will not recommend any further intervention. Necrotic coccyx decubitus s/p debridement 05/12/21 -Abx stopped today due to c. diff and ulcer being debridement -Wound care daily. Pulmonary nodules, cannot r/o ? PNA vs. fungal etiology vs. ? atelectasis -See above Hypertension -Uncontrolled overnight with systolic BP 190's, denies uncontrolled pain, palpitations -S/p IV hydralazine and labetalol overnight -Today systolic 140's -C/w lisinopril with holding parameters Elevated T. bili - resolved -No abdominal pain, now wnl -CT abd/pelvis above -Monitor for worsening s/s Diabetes -Neutropenic diet consistent carbohydrate sliding scale with coverage with before every meal fingersticks and nightly -Added Adis BID Obstructive sleep apnea, chronic -On RA Depression -stable -C/w home meds DVT prophylaxis -teds, SCD DISPOSITION: Patient has been accepted at [facility] by Dr. Sharad Baker, hospitalist. Patient is in agreement for transfer Bed availability is the issue and he is on a wait list. For now, c/w treatment above. VS, I&O, 24H, Fishbone Vital Signs/I&O Vital Signs Date Time Temp Pulse Resp B/P (MAP) Pulse Ox O2 Delivery O2 Flow Rate FiO2 05/15/21 14:14 102.2 100 18 157/77 97 Room Air I&O- Last 24 Hours up to 6 AM 05/15/21 05:59 Intake Total 2950 ml Output Total 2475 ml Balance 475 ml Laboratory Data 24H LABS Laboratory Tests 2 05/14/21 16:53: Uric Acid 1.7L, Procalcitonin 1.00 05/14/21 18:05: Bedside Glucose (Misc Panel) 213H 05/14/21 21:46: Bedside Glucose (Misc Panel) 169H 05/15/21 05:08: Immature Granulocyte % (Auto) 0.0, Neutrophils (%) (Auto) 24.5L, Lymphocytes (%) (Auto) 22.4L, Monocytes (%) (Auto) 53.1H, Eosinophils (%) (Auto) 0.0, Basophils (%) (Auto) 0.0, Neutrophils # (Auto) 0.1L, Lymphocytes # (Auto) 0.1L, Monocytes # (Auto) 0.3, Eosinophils # (Auto) 0.0, Basophils # (Auto) 0.0, Nucleated Red Blood Cells % (auto) 0.0, Immature Platelet Fraction 1.9, Anion Gap 7L, Glomerul ar Filtration Rate > 60.0, Calcium Level 7.7L, Total Bilirubin 1.0, Aspartate Amino Transf (AST/SGOT) 10, Alanine Aminotransferase (ALT/SGPT) 11L, Alkaline Phosphatase 115, Total Protein 4.8L, Albumin 1.7L, Albumin/Globulin Ratio 0.5 05/15/21 12:19: Bedside Glucose (Misc Panel) 225H CBC/BMP Laboratory Tests 05/15/21 05:08 Microbiology Microbiology 05/14/21 Blood Culture, Received Pending 05/13/21 Fungal Smear, Received Pending 05/13/21 Fungal Culture, Received Pending 05/13/21 Herpes Simplex Virus I (PCR), Received Pending 05/13/21 Herpes Simplex Virus II (PCR), Received Pending 05/10/21 Respiratory Virus Panel (PCR) ([facility]) - Final, Complete 05/10/21 Blood Culture - Preliminary, Resulted No Growth after 72 hours. All specime... 05/10/21 Blood Culture - Preliminary, Resulted No Growth after 72 hours. All specime... Janeen Latif MD May 15, 2021 14:44
[2021-05-15] MEDS: HumaLOG INSULIN (NovoLOG) PER UNIT SC SCH (21:00)
[2021-05-16] VITALS (8 sets, daily range): BP systolic 135–158; BP diastolic 68–83
[2021-05-16] MEDS: ACETAMINOPHEN TAB 650MG DOSE (2X325MG) PO PRN ×2 (01:13→12:03)
--- NOTE | 2021-05-16 02:41 | IPNPDOC ---
Text Note Date of Service The patient was seen on 05/15/21. NOTE Brief summary of patient's hospital course below for the purpose of interfaci lity transfer. Please see official discharge summary, to be dictated by patient's daytime provider (Dr. Latif). Admitted 05/10/21 Discharged 05/15/21 Ho is 55M with history of AML receiving platelet transfusions, currently on Levaquin for CAP, recently treated for neutropenic fever on 05/04/2021, who presented as a direct admission from the [facility] due to recurrent fevers at home (99.7-100.0). Repeat CBC upon admission showed pancytopenia with WBC 0.7, H&H 8.1/24.1, Plt 8. He was admitted for neutropenic fever of unclear etiology with ANC 103.5. During hospitalization, patient received total 3U PRBCs, 5PLTs. ID on consult and patient received IV Zosyn x2days, IV Vancomycin 750mg Q8H x4days, IV Meropenem 1g Q8H x3days, PO Voriconzaole 200mg BID x6days, PO Acyclovir 400mg BID x6days throughout hospitalization. 05/12, he was found to be +Cdiff and started on PO Dificid 200mg BID x4days. Pulmonology on consult for further w/u of consolidative mass in LLL, as this was a suspected source of patient's fevers. BAL of left lower lobe was to be performed, but this was delayed and eventually cancelled due to unstable Plt count and increased bleeding risk despite repeated Plt transfusions. General surgery on consult and performed excisional debridement of skin and soft tissue of necrotic wound at coccyx 05/12, as this was a suspected source of patient's fevers. Abx were stopped following debridement. ENT on consult for further w/u of left sinus opacification as reported on Maxillofacial CT (05/11), as this was a suspected source of patient's fevers. Left sinus aspiration was to be performed during bronchoscopy, if patient was adequate surgical candidate. Left sinus opacification was found to be in line with patient's hx abnormal mass-like enhancement of sinuses. Med/Onc on consult who spoke with patient's Med/Onc specialist in [place], Dr. Srivastava. Patient's chemotherapy was stopped 05/13, while treating current sepsis. 05/15, [facility] accepted patient for transfer, pending bed availability, for further management of patient's complicated picture. VS,Fishbone, I+O VS, Fishbone, I+O Laboratory Tests 05/15/21 05:08 Vital Signs Date Time Temp Pulse Resp B/P (MAP) Pulse Ox O2 Delivery O2 Flow Rate FiO2 05/15/21 21:00 97.7 05/15/21 20:00 105 18 137/76 (96) 97 Room Air I&O- Last 24 Hours up to 6 AM 05/15/21 05:59 Intake Total 2950 ml Output Total 2475 ml Balance 475 ml Ankita Bettencourt DO May 16, 2021 00:00
[2021-05-16 06:57] LABS: HEMATOCRIT 24.5 % (42.0-52.0); HEMOGLOBIN 8.3 g/dl (13.5-17.5); LYMPH # 0.1 10^3/uL (1.5-5.0); LYMPH % 29.5 % (24.0-44.0); MEAN CORPUSCULAR HEMOGLOBIN 29.3 pg (27.0-33.0); MEAN CORPUSCULAR HGB CONC 33.9 g/dl (32.0-36.5); MEAN CORPUSCULAR VOLUME 86.6 fl (80.0-96.0); MONO # 0.2 10^3/uL (0.0-0.8); MONO % 45.5 % (2.0-8.0); NEUTROPHILS % 11.4 % (36.0-66.0); RED BLOOD COUNT 2.83 10^6/uL (4.30-6.10)
[2021-05-16 07:00] LABS: WHITE BLOOD COUNT 0.4 10^3/uL (4.0-10.0)
[2021-05-16 07:01] LABS: NEUTROPHILS # 0.1 10^3/uL (1.5-8.5); PLATELET COUNT, AUTOMATED 8 10^3/uL (150-450)
--- NOTE | 2021-05-16 07:20 | DS.PDOC ---
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 difficile infection vs. 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 PNA vs. fungal etiology vs. ? atelectasis Hypertension Elevated T. bili Diabetes mellitus Obstructive sleep apnea, chronic Depression COMPLICATIONS/CHIEF COMPLAINT: Neutropenic Fever HISTORY OF PRESENT ILLNESS: 55-year-old male with history of AML , recently treated for neutropenic fever on 05/04/2021 and treated for community-acquired pneumonia on Levaquin, presents as a direct admission from the [facility] where he was receiving platelet transfusion due to recurrent fevers at home 99.7-100.0. Patient said that after transfusion on Monday patient went home and was "acting like a 2-year-old," evaluated at [facility] [place] and was found to be hypoglycemic with glucose of 42 and hypokalemia. Since then patient has been himself and denies any chest pain pressure tightness shortness of breath chills nausea vomiting. He admits to chronic diarrhea if he does not take his Imodium every morning. He otherwise denies any dysuria urgency frequency chills flank pain. Repeat CBC today showed pancytopenia with white blood cell count of 0.5 platelet of 3000 and hemoglobin of 6.6. Patient denies any bleeding but says that he had increasing bruising in his upper and lower extremities since Monday he denies any bright red blood per rectum melena black tarry stools gingival bleeding hemarthrosis or any ecchymotic areas in his body. Patient was admitted for neutropenic fever for IV antibiotics to cover gram-negative infection as well as blood transfusion for RBCs and platelets. HOSPITAL COURSE: During this hospital stay the following issues were addressed: Neutropenic fever likely 2/2 to c. difficile infection vs. other infection (see paragraph below), sepsis -Continues to spike fevers overnight T max 102.2, Total of 7 bowel movements 05/15/2021, 6 recorded BM today alone. -WBC 0.6, remains intermittently tachycardic, + c. diff (Dx 05/12/21-many risk factors including multiple hospitalization, tx with multiple abx over past 1 mo, immunocompromised, etc) -At this time unable to absolutely r/o fungal infection (i.e. aspergillosis, nocardia, mucor, etc) with aspergillosis studies pending, bronchoscopy unable to be done due to low PLTs. CT chest showed multiple lesions in b/l lungs. CT from 08/2020 (scanned image to our EMR) showed mass and scattered pulmonary lung nodules , concerning for inflammatory/infection at that time as well. Discussed again with Dr. Zuniga pulmonary today who agrees bronchoscopy is risky given hematological issues he is having, particularly with his PLTs not being able to stay elevated despite getting multiple transfusions daily. Aspergillosis studies in 04/[address] [facility] neg. A. galactomannanan Ag neg here. Discussed the case with Dr. Herron blood bank physician who suggested PLTs being transfused DURING the procedure because she says that by the time the platelets are transfused and post-tranfusion CBC can be checked prior to procedure, the PLT levels have already dropped again. Risk would be doing the procedure without knowing the true PLT count. There is also a risk given that he needs irradiated PLTs which are harder to obtain (need to go through [place] and even at times [facility]). Extras likely wouldn't be readily available if there was an emergency bleed and would likely require some time to obtain. Initially we were to wait and see if his PLTs can increase over the weekend (since we have stopped the chemotherapy 05/13/21) perhaps we will see the PLTs climb higher on their own. Upon discussion with Dr. Zuniga and Dr. Paz 05/14/21, bronchoscopy will be needing to be done because he continues to spike fevers despite appropriate tx of infections identified. We currently do not have many antifungal medications here which might be needed and the risk to do a bronchoscopy here is too great considering we don't have readily available blood product in the event that he might bleed with bronchoscopy. -Necrotic coccyx decubitus ulcer unlikely as cause, since patient has been on vancomycin, meropenem and still spiked. General surgery debrided 05/12/21, no cx sent. Fungal swab, HSV swabs pending -Left sinus opacification was seen on CT above. Seen d/c summary from [facility], who also had ENT see there and they did not feel this needed additional treatment/intervention. Updated our ENT who will no longer plan on further treatment/intervention. If he goes for bronchoscopy in future, perhaps we would want to re-involve this service to discuss. -Micro below -Dr. Paz (ID) spoke with Dr. Srivastava (patient's med/onc at [facility]) who agreed with stopping chemotherapy while treating sepsis. Stopped 05/13/21 -Stopped Zosyn 05/11/21. Stopped meropenem, vancomycin 05/13/21. C/w fidaxomicin. Alternating tylenol and toradol for fevers. -Dr. Paz spoke with Dr. Vitaliy Mckeon, Infectious disease in [place], [place] who has treated him before. He recommended transfer back to a bigger, likely better equipped facility that will have quicker availability to the blood products needed and can be seen by the multiple services he requires. -Dr. 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 He was put on a allogenic transplant list by his medical oncologist at that facility. -Neupogen stopped early in admission. Venetoclax stopped (05/13/21) and hoping to see some improvement in blood numbers while off chemo. -S/p 7 PRBC, 8 PLTs to date (including PLTS from 05/16/21). -Goal to keep platelets > 10, hemoglobin >7 per med/onc -Neutropenic precautions Left sinus opacification -Hx of abnormal mass-like enhancement involving the left maxillary, ethmodi and sphenoid sinus- see d/c summary from [facility] -At this time, likely [facility] ENT also concluded, will not recommend any further intervention unless other sources ruled out. 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 diff and ulcer being debridement -Not seen to extend to bone, discussed with ID and further imaging was not done -Wound care daily. Pulmonary nodules, cannot r/o ? PNA vs. fungal etiology vs. ? atelectasis -See above Hypertension -C/w lisinopril with holding parameters Elevated T. bili - resolved -No abdominal pain, now wnl -CT abd/pelvis done -Monitor for worsening s/s Diabetes -Neutropenic diet consistent carbohydrate sliding scale with coverage with before every meal fingersticks and nightly -Added Adis BID Obstructive sleep apnea, chronic -On RA Depression -Stable -C/w home meds DVT prophylaxis -teds, SCD due to thrombocytopenia PHYSICAL EXAMINATION: VITAL SIGNS: See below GENERAL APPEARANCE: NAD, resting in bed. AAOx 3 HEENT: No JVD thyromegaly or cervical lymphadenopathy, no upper teeth CARDIOVASCULAR: S1-S2 regular rate rhythm LUNGS: No wheezing rales or rhonchi clear to auscultation, CTAB ABDOMEN: Obese, soft, nontender, nondistended positive bowel sounds x4 quadr ants, No rebound or guarding INTEGUMENTARY: 4 cmx 1.5 cm coccyx decubitus appears cleaned out and packed, small 1 cm. x0.75 cm Stage I ulcer below coccyx ulcer. EXTREMITIES: Right forearm peripheral IV multiple bruises bilateral upper and lower extremities Neuro: CN 2-12 intact, no focal deficits IMAGING: CT chest 05/10/21: Multiple lesions in bilateral lungs. The largest measures in the right upper lobe measuring 1.1 cm. Findings suspicious for neoplastic lesion. Tissue diagnosis is suggested. CT chest 08/2020 (scanned image in our EMR): Approximately 6 m consolidative mass in the left lower lobe with surrounding groundglass attenuation as well as multiple bilateral small scattered pulmonary nodules in the peripheral and lower lung predominant distribution. 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 Aspergillosis is a differential consideration. Although dictating lesions are identified, a less likely differential con sideration would BE septic pulmonary emboli with a left lower lobe infarct. Nonspecific 1.5 x 1.0 cm soft tissue nodule in the anterior right chest wall superior to the patient's right nipple. Correlation with physical exam is recommended. Coronary artery calcifications which are imaging biomarkers for cardiovascular disease. MICROBIOLOGY: Blood cultures x 2 sets: NG Sputum cx: unable to be obtained C diff.: positive Lyme: pending HSV swab of coccyx ulcer: pending Fungal swab of coccyx ulcer: pending DISCHARGE PLAN: Patient has been accepted at [facility] by Dr. Gao, hospitalist. Transferring today DISCHARGE MEDICATIONS: Please see below. ACTIVITY:As tolerated DIET: 2 gm sodium, see nutritional assessment suggestions ITEMS TO FOLLOW UP: 1. HSV and fungal cx of coccyx wound DISCHARGE CONDITION:Stable TIME SPENT ON DISCHARGE: 70 minutes. Vital Signs/I&Os Vital Signs Date Time Temp Pulse Resp B/P (MAP) Pulse Ox O2 Delivery O2 Flow Rate FiO2 05/16/21 03:57 99.9 93 18 142/70 (94) 97 Room Air I&O- Last 24 Hours up to 6 AM 05/16/21 06:00 Intake Total 2657 ml Output Total 2475 ml Balance 182 ml Laboratory Data Labs 24H Laboratory Tests 2 05/15/21 12:19: Bedside Glucose (Misc Panel) 225H 05/15/21 17:15: Bedside Glucose (Misc Panel) 168H 05/15/21 20:32: Bedside Glucose (Misc Panel) 238H 05/16/21 06:34: 05/16/21 06:35: Immature Granulocyte % (Auto) 13.6H, Neutrophils (%) (Auto) 11.4L, Lymphocytes (%) (Auto) 29.5, Monocytes (%) (Auto) 45.5H, Eosinophils (%) (Auto) 0.0, Basophils (%) (Auto) 0.0, Neutrophils # (Auto) 0.1L, Lymphocytes # (Auto) 0.1L, Monocytes # (Auto) 0.2, Eosinophils # (Auto) 0.0, Basophils # (Auto) 0.0, Nucleated Red Blood Cells % (auto) 0.0, Immature Platelet Fraction 1.1 CBC/BMP Laboratory Tests 05/16/21 06:35 FSBS Laboratory Tests Test 05/15/21 12:19 05/15/21 17:15 05/15/21 20:32 Range/Units Bedside Glucose (Misc Panel) 225 168 238 70-105 MG/DL Microbiology Microbiology 05/14/21 Blood Culture - Preliminary, Resulted No growth after 24 hours . All specim... 05/13/21 Fungal Smear, Received Pending 05/13/21 Fungal Culture, Received Pending 05/13/21 Herpes Simplex Virus I (PCR), Received Pending 05/13/21 Herpes Simplex Virus II (PCR), Received Pending 05/10/21 Respiratory Virus Panel (PCR) (KANDY) - Final, Complete 05/10/21 Blood Culture - Final, Complete NO GROWTH AFTER 5 DAYS 05/10/21 Blood Culture - Final, Complete NO GROWTH AFTER 5 DAYS Discharge Medications Scheduled Acyclovir (Acyclovir) 400 Mg Tablet, 400 MG PO BID, (Reported) Buspirone HCl (Buspirone HCl) 10 Mg Tablet, 10 MG PO BID, (Reported) Ertugliflozin Pidolate (Steglatro) 15 Mg Tablet, 15 MG PO DAILY, (Reported) Fidaxomicin (Dificid) 200 Mg Tablet, 200 MG PO BID Fluoxetine Hcl (Fluoxetine HCl) 40 Mg Capsule, 40 MG PO DAILY, (Reported) Insulin Human Lispro (Humalog) 100 Unit/1 Ml Vial, 0 UNITS SC QHS L.acidoph/L.bulg/B.bif/S.therm (Iris-Bid Caplet) 1 Each Tablet, 1 EA PO BIDWM Lisinopril (Lisinopril) 20 Mg Tablet, 20 MG PO DAILY, (Reported) Voriconazole (Voriconazole) 200 Mg Tablet, 200 MG PO BID, (Reported) allopurinoL (allopurinoL) 300 Mg Tablet, 300 MG PO DAILY, (Reported) Allergies Coded Allergies: metformin (Verified Allergy, Intermediate, diarrhea, 07/21/20) Current Medications Current Medications Medications (Trade) Dose Ordered Sig/Marla Route PRN Reason Start Time Stop Time Status Last Admin Dose Admin Acetaminophen (Tylenol Tab) 650 mg Q4HP PRN PO TEMP => 100.5 05/11/21 09:40 05/16/21 14:33 DC 05/16/21 12:03 Acetaminophen (Tylenol Tab) 1,000 mg ASDIRECTED PO 05/10/21 21:00 05/11/21 23:59 DC 05/11/21 01:05 Acyclovir (Zovirax) 400 mg BID PO 05/10/21 21:00 05/16/21 14:33 DC 05/16/21 08:27 Allopurinol (Zyloprim) 300 mg DAILY PO 05/11/21 09:00 05/14/21 16:16 DC 05/14/21 08:45 Buspirone HCl (Buspar) 10 mg QID PO 05/10/21 17:00 05/16/21 14:33 DC 05/16/21 12:03 Cetirizine HCl (ZyrTEC) 10 mg DAILY PRN PO CONGESTION 05/14/21 04:50 05/16/21 14:33 DC 05/15/21 13:52 Dextrose (Dextrose 50%) 25 ml ASDIRECTED PRN IV SEE LABEL COMMENTS 05/10/21 16:35 05/16/21 14:33 DC Diatrizoate Meglum/ Diatrizoate Sod (Gastrografin) 10 ml Q30M PO 05/10/21 17:30 05/10/21 18:11 DC 05/10/21 18:17 Diphenhydramine HCl (Benadryl) 50 mg ASDIRECTED IV 05/10/21 21:00 05/11/21 23:59 DC 05/11/21 01:04 Fidaxomicin (Dificid) 200 mg BID PO 05/12/21 17:00 05/16/21 14:33 DC 05/16/21 08:28 Filgrastim (Neupogen) 300 mcg DAILY@1800 SC 05/10/21 18:00 05/11/21 11:33 DC 05/10/21 21:18 Fluoxetine HCl (PROzac) 40 mg DAILY PO 05/11/21 09:00 05/16/21 14:33 DC 05/16/21 08:27 Glucagon (Glucagon) 1 mg ASDIRECTED PRN SC SEE LABEL COMMENTS 05/10/21 16:35 05/16/21 14:33 DC Glucose (Glucose) 16 GM ASDIRECTED PRN PO SEE LABEL COMMENTS 05/10/21 16:35 05/16/21 14:33 DC Home Med (Home Med List Complete!) ASDIRECTED XX 05/10/21 17:35 05/10/21 17:44 DC Insulin Human Lispro (HumaLOG INSULIN) SEE PROTOCOL TABLE QHS SC 05/10/21 21:00 05/16/21 14:33 DC Lactobacillus Acidophilus (Bacid) 1 ea BIDWM PO 05/11/21 18:00 05/16/21 14:33 DC 05/16/21 08:27 Lidocaine/ Epinephrine (Lidocaine 1%/ Epinephrine) 20 ml ASDIRECTED SC 05/12/21 14:35 05/16/21 14:33 DC 05/12/21 19:11 Lisinopril (Prinivil) 20 mg DAILY PO 05/11/21 09:00 05/16/21 14:33 DC 05/16/21 08:29 Loperamide HCl (Imodium) 2 mg DAILYPRN PO 05/11/21 10:25 05/11/21 10:42 DC Loperamide HCl (Imodium) 2 mg DAILYPRN PRN PO Diarrhea 05/11/21 10:40 05/12/21 14:10 DC 05/12/21 08:29 Meropenem 1 gm/IV Miscellaneous Supplies 50 ml @ 100 mls/hr Q8H IV 05/11/21 22:00 05/13/21 10:16 DC 05/13/21 07:03 Miscellaneous (Unresolved Patient Own Med Order) SEE LABEL COMMENTS UNRESOLVED XX 05/11/21 00:01 05/10/21 18:47 DC Patient Own Medication (Patient'S Own Med) VENETOCLAX 100MG TAB... DAILY PO 05/11/21 09:00 05/13/21 08:20 DC 05/12/21 08:30 Piperacillin Sod/ Tazobactam Sod 4.5 gm/Dextrose 50 ml @ 50 mls/hr Q6H IV 05/10/21 18:00 05/11/21 19:57 DC 05/11/21 17:23 Vancomycin HCl 750 mg/IV Miscellaneous Supplies 1 each/ Sodium Chloride 275 ml @ 275 mls/hr Q8H IV 05/11/21 20:00 05/13/21 10:16 DC 05/13/21 04:26 Vancomycin HCl 750 mg/IV Miscellaneous Supplies 1 each/ Sodium Chloride 275 ml @ 275 mls/hr Q8H IV 05/11/21 21:00 05/13/21 10:16 DC 05/13/21 05:48 Vancomycin HCl 1000 mg/IV Miscellaneous Supplies 1 each/ Sodium Chloride 270 ml @ 270 mls/hr Q8H IV 05/10/21 20:00 05/11/21 19:39 DC 05/11/21 12:18 Voriconazole (Vfend) 200 mg BID PO 05/10/21 21:00 05/16/21 14:33 WV 05/16/21 08:28 Janeen Latif MD May 16, 2021 07:20
[2021-05-16 07:30] LABS: ALBUMIN 1.8 GM/DL (3.2-5.2); ALT/SGPT 12 U/L (12-78); BILIRUBIN,TOTAL 0.9 MG/DL (0.2-1.0); BLOOD UREA NITROGEN 10 MG/DL (7-18); CALCIUM LEVEL 8.2 MG/DL (8.5-10.1); CARBON DIOXIDE LEVEL 26 MEQ/L (21-32); CHLORIDE LEVEL 104 MEQ/L (98-107); CREATININE FOR GFR 0.58 MG/DL (0.70-1.30); GLOMERULAR FILTRATION RATE > 60.0 (>56); GLUCOSE, FASTING 185 MG/DL (70-100); INR 1.23; POTASSIUM SERUM 3.9 MEQ/L (3.5-5.1); PROTHROMBIN TIME 15.9 SECONDS (12.7-14.5); SODIUM LEVEL 137 MEQ/L (136-145); TOTAL PROTEIN 5.1 GM/DL (6.4-8.2)
[2021-05-16 07:31] LABS: PARTIAL THROMBOPLASTIN TIME 48.6 SECONDS (25.9-37.0)
[2021-05-16] MEDS: FLUoxetine 20 MG CAP PO SCH (08:27)
[2021-05-16] MEDS: busPIRone 10 MG TAB PO SCH ×2 (08:27→12:03)
[2021-05-16] MEDS: LACTOBACILLUS ACIDOPHILUS CAP (BACID) PO SCH (08:27)
[2021-05-16] MEDS: ACYCLOVIR 200 MG CAPSULE PO SCH (08:27)
[2021-05-16] MEDS: FIDAXOMICIN 200 MG TAB (DIFICID) PO SCH (08:28)
[2021-05-16] MEDS: VORICONAZOLE 200MG TABLET (VFEND) PO SCH (08:28)
[2021-05-16 13:29] LABS: HEMATOCRIT 23.1 % (42.0-52.0); HEMOGLOBIN 7.9 g/dl (13.5-17.5); MEAN CORPUSCULAR HEMOGLOBIN 29.7 pg (27.0-33.0); MEAN CORPUSCULAR HGB CONC 34.2 g/dl (32.0-36.5); MEAN CORPUSCULAR VOLUME 86.8 fl (80.0-96.0); RED BLOOD COUNT 2.66 10^6/uL (4.30-6.10); WHITE BLOOD COUNT 0.4 10^3/uL (4.0-10.0)
[2021-05-16 13:33] LABS: PLATELET COUNT, AUTOMATED 21 10^3/uL (150-450)
[2021-05-16] MEDS ORDERED: RISATAB3 PO (13:42)
[2021-05-16] MEDS ORDERED: INSUHUMDS SC (13:42)
[2021-05-16] MEDS ORDERED: FIDA200TA PO (13:42)
== END 2021-05-16 14:30 | disposition short-term general hospital (02) | DRG 720 ==
LOC: M MSPAV 16:12 → M PCU 05-12 14:41
PROVIDERS: ADMIT Internal Medicine; ATTEND Internal Medicine
PROC: 30233N1 Transfusion of Nonautologous Red Blood Cells into Peripheral Vein, Percutaneous Approach (ICD-10-PCS; 2021-05-11)
PROC: 30233R1 Transfusion of Nonautologous Platelets into Peripheral Vein, Percutaneous Approach (ICD-10-PCS; 2021-05-11)
PROC: 0JB90ZZ Excision of Buttock Subcutaneous Tissue and Fascia, Open Approach (ICD-10-PCS; principal; 2021-05-12)
DX: A41.9 Sepsis, unspecified organism (principal); I10 Essential (primary) hypertension; E11.9 Type 2 diabetes mellitus without complications; K52.9 Noninfective gastroenteritis and colitis, unspecified; E66.01 Morbid (severe) obesity due to excess calories; Z68.39 Body mass index [BMI] 39.0-39.9, adult; D70.9 Neutropenia, unspecified; L89.150 Pressure ulcer of sacral region, unstageable; D61.818 Other pancytopenia; A04.72 Enterocolitis due to Clostridium difficile, not specified as recurrent; C92.00 Acute myeloblastic leukemia, not having achieved remission; R91.8 Other nonspecific abnormal finding of lung field; G47.33 Obstructive sleep apnea (adult) (pediatric); F32.9 Major depressive disorder, single episode, unspecified; Z79.899 Other long term (current) drug therapy; Z88.8 Allergy status to other drugs, medicaments and biological substances; E78.5 Hyperlipidemia, unspecified; J32.0 Chronic maxillary sinusitis; J32.3 Chronic sphenoidal sinusitis; J32.2 Chronic ethmoidal sinusitis